=== PATIENT | male | born 1945 | race Caucasian/White ===

== ENCOUNTER → 2023-05-19 12:49 | Outpatient (REF) | payer MEDICARE, OTHER, SELFPAY | LOC: DHCBC MAIN 12:49 | PROVIDERS: ATTENDING PHYSICIAN Internal Medicine Cardiovascular Disease; FAMILY PHYSICIAN Internal Medicine | DX: I35.0 Nonrheumatic aortic (valve) stenosis (principal) | CPT/HCPCS: 93306 ==

== ENCOUNTER → 2023-09-02 08:38 | Outpatient (REF) | payer MEDICARE, OTHER, SELFPAY ==
[2023-09-02 12:56] LABS: % Eosinophils 2.2 % (0-6); % Immature Granulocytes 0.3 % (0-0.5); % Lymphocytes 22.4 % (20.5-51.1); % Monocytes 8.7 % (1.7-9.3); % Neutrophils 65.4 % (42.2-75.2); Absolute Basophils 0.1 10^3/uL (0-0.2); Absolute Eosinophils 0.2 10^3/uL (0-0.7); Absolute Lymphocytes 1.7 10^3/uL (1.2-3.4); Absolute Monocytes 0.7 10^3/uL (0.1-0.6); Absolute Neutrophils 5.1 10^3/uL (1.4-6.5); Hemoglobin 14.7 g/dL (13.0-18.0); Mean Corp Hgb Conc. 34.2 g/dL (33.0-37.0); Mean Corpuscular Hgb 33.4 pg (27.0-31.0); Mean Corpuscular Volume 97.7 fL (80.0-94.0); Nucleated Red Blood Cells % 0 % (-); Platelet Count 263 10^3/uL (130-400); Red Cell Dist. Width 13.6 % (11.5-14.5); White Blood Cell Count 7.7 10^3/uL (4.8-10.8)
[2023-09-02 13:37] LABS: ALT (SGPT) 31 U/L (0-50); AST (SGOT) 34 U/L (17-59); Albumin 4.3 g/dl (3.5-5.0); Alkaline Phosphatase 46 U/L (38-126); Blood Urea Nitrogen 21 mg/dl (9-20); Calcium 9.6 mg/dl (8.4-10.2); Carbon Dioxide 28 mmol/L (22-30); Chloride 103 mmol/L (98-107); Glucose 130 mg/dl (70-99); HDL Cholesterol 53 mg/dl; LDL Cholesterol, Calculated 55 mg/dl; Potassium 4.2 mmol/L (3.5-5.1); Sodium 139 mmol/L (135-145); Total Bilirubin 1.1 mg/dl (0.2-1.3); Total Cholesterol 132 mg/dl (50-199); Triglyceride 124 mg/dl (10-149); Very Low Density Lipoprotein 24 mg/dl (0-30); eGFR > 60.00
[2023-09-02 13:48] LABS: Free T3 3.32 pg/ml (2.77-5.27); Free T4 1.02 ng/dl (0.78-2.19)
[2023-09-02 13:57] LABS: Microalbumin, Random Urine 6.3 mg/dl (0.6-1.7)
[2023-09-02 14:03] LABS: TSH 5.25 uIU/ml (0.47-4.68)
[2023-09-02 14:24] LABS: Glycohemoglobin (HgbA1c) 6.1 % (4.0-5.6)
== END ==
LOC: HWLAB 08:38
PROVIDERS: ATTENDING PHYSICIAN Internal Medicine
DX: E11.9 Type 2 diabetes mellitus without complications (principal); E78.5 Hyperlipidemia, unspecified; E03.9 Hypothyroidism, unspecified; K92.2 Gastrointestinal hemorrhage, unspecified
CPT/HCPCS: 36415; 80053; 80061; 82043; 82570; 83036; 84439; 84443; 84481; 85025

== ENCOUNTER 2023-11-28 19:10 | Observation (INO) | payer MEDICARE, OTHER, SELFPAY ==
[2023-11-28] VITALS (14 sets, daily range): BP systolic 100–160; BP diastolic 47–89; BMI 30.6
--- NOTE | 2023-11-28 11:53 | ED.PDOC.TRB ---
ED Provider Triage
-
A medical screening examination has been initiated by a qualified medical provider. Based on the assessment performed at this time, it has been determined that an emergent medical condition may exist and the patient has been informed that further
medical evaluation and possible additional diagnostic testing may be needed.
HPI: This is a medical evaluation conducted in person to initiate diagnostic evaluation and provide initial therapeutics. Please see further documentation by the treating clinician.
GENERAL: Alert , in no apparent distress
EYE: No visual abnormalities.
NECK: Trachea midline
ENT: No visible abnormalities.
LUNGS: No acute respiratory distress
NEUROLOGICAL: Alert and oriented
SKIN: Skin intact. No visible changes.
MUSCULOSKELETAL: Moving extremities normally
PSYCH: Normal and appropriate interaction.
77 y/o M
chest pressure with exertion since last night walking up steps; has h/o CABG, CAD
has also had intermittent tightness today
no nausea, sob, pleuritic pain, lleg swelling
kanwal evauate with labs, ekg
[2023-11-28 12:16] LABS: % Basophils 0.9 % (0-2); % Eosinophils 1.7 % (0-6); % Immature Granulocytes 0.3 % (0-0.5); % Lymphocytes 26.2 % (20.5-51.1); % Monocytes 10.3 % (1.7-9.3); % Neutrophils 60.6 % (42.2-75.2); Absolute Basophils 0.1 10^3/uL (0-0.2); Absolute Eosinophils 0.1 10^3/uL (0-0.7); Absolute Monocytes 0.8 10^3/uL (0.1-0.6); Absolute Neutrophils 4.6 10^3/uL (1.4-6.5); Hematocrit 40.5 % (39.0-52.0); Hemoglobin 14.9 g/dL (13.0-18.0); Mean Corp Hgb Conc. 36.8 g/dL (33.0-37.0); Mean Corpuscular Hgb 34.4 pg (27.0-31.0); Mean Corpuscular Volume 93.5 fL (80.0-94.0); Mean Platelet Volume 9.6 fL (7.4-10.4); Nucleated Red Blood Cells % 0 % (-); Platelet Count 231 10^3/uL (130-400); Red Blood Cell Count 4.33 10^6/uL (4.70-6.10); Red Cell Dist. Width 13.6 % (11.5-14.5); White Blood Cell Count 7.6 10^3/uL (4.8-10.8)
[2023-11-28 12:33] LABS: ALT (SGPT) 28 U/L (0-50); AST (SGOT) 31 U/L (17-59); Albumin 4.4 g/dl (3.5-5.0); Alkaline Phosphatase 50 U/L (38-126); Blood Urea Nitrogen 23 mg/dl (9-20); Calcium 9.5 mg/dl (8.4-10.2); Carbon Dioxide 28 mmol/L (22-30); Chloride 104 mmol/L (98-107); Glucose 119 mg/dl (70-99); Potassium 4.1 mmol/L (3.5-5.1); Sodium 142 mmol/L (135-145); Total Bilirubin 1.1 mg/dl (0.2-1.3); Total Protein 6.8 g/dl (6.3-8.2); eGFR > 60.00
[2023-11-28 12:40] LABS: NT-proBNP 475 pg/ml; Troponin I < 0.012 ng/ml
--- NOTE | 2023-11-28 13:39 | ED.GENMED ---
History of Present Illness
General
Chief Complaint: Chest Pain
Source: patient and spouse
Time Seen by Provider: 11/28/23 12:37
History of Present Illness
History of Present Illness:
77-year-old male who presents for evaluation of chest discomfort. The patient was out yesterday and sort of hiking. Patient states he was little out of breath walking up the hill. He then got home and was walking up the steps and he developed
chest discomfort. Patient states the chest discomfort resolved at the top of the steps. He was able to go to sleep but today the pain has been off and on. Described as tightness across his chest. No shortness of breath. No fevers. No leg
swelling. Does have a history of aortic stenosis as well as CABG
Past History
Past History
ED Past Medical History: CAD, GERD, HTN, Hypercholesterolemia and Valvular disease
ED Past Surgical History: Cardiac (CABG 1999, cath w/ stents)
Social History
Tobacco: Non-smoker
Alcohol: None
Drug: None
Personal:
Living: with family
Employment: Retired
Family History
Family History: Other (Noncontributory)
Phy Exam
Physical Exam
Physical Exam:
CONSTITUTIONAL Patient alert and oriented to person, place and time. Well-appearing. Vital signs reviewed.
HEAD atraumatic, normocephalic.
EYES eyelids normal to inspection, Pupils equally round and reactive to light, Extraocular muscles intact, Conjunctiva normal, Sclera normal.
NECK normal range of motion, Trachea midline, no jugular venous distention.
RESPIRATORY CHEST No respiratory distress noted, Chest expansion equal, Bilateral breath sounds clear.
CARDIOVASCULAR regular rate and rhythm, 4 out of 6 systolic ejection murmur
BACK normal inspection, no obvious deformities
UPPER EXTREMITY range of motion normal, Motor strength normal, no cyanosis, no edema.
LOWER EXTREMITY range of motion normal, Motor strength normal, no cyanosis, no edema.
NEURO Speech normal, No focal motor deficits, [place] coma scale 15, Memory normal, Cranial Nerves intact to screening exam.
SKIN skin warm, dry, and normal in color.
PSYCHIATRIC patient oriented to person place and time, Normal affect.
Scores
Heart Score for Chest Pain Patients
STEMI patient?: No
History: Moderately Suspicious
ECG: Nonspecific Repolarization
Age: >/= 65 years
Risk Factors: >/= 3 Risk Factors or History of CAD
Troponin: </= Normal Limit
Heart Score for Chest Pain Patients: 6
Heart Score Risk: 20.3% MACE over next 6 weeks
Course
Orders/Labs/Results
Orders:
Orders
11/28/23 11:40
EKG [Electrocardiogram (*1)] Urgent
Reason for Study: Chest Pain
EKG- Treatment ONCE
11/28/23 12:01
Complete Blood Count/With Diff Urgent
Comprehensive Metabolic Panel Urgent
NT-proBNP Urgent
Troponin I Urgent
11/28/23 13:21
CR Chest - 2 Views Urgent
Comment:
Reason For Exam: cp
11/28/23 18:00
EKG [Electrocardiogram (*1)] Routine
Reason for Study: Chest Pain
Troponin I Q6H
11/29/23 00:00
Troponin I Q6H
11/29/23 06:00
EKG [Electrocardiogram (*1)] IN AM
Reason for Study: Chest Pain
NPO
Allow oral meds: Yes
Allow clear liquids: No
NM Cardiac Stress IN AM
Comment:
Reason For Exam: chest pain, CAD
11/29/23 08:00
Nuclear lexiscan Stress Test Routine
Reason for Study: chest pain, CAD
Abnormal Lab Results
11/28/23
12:01
RBC 4.33 L 10^6/uL
(4.70-6.10)
MCH 34.4 H pg
(27.0-31.0)
Absolute Monos (auto) 0.8 H 10^3/uL
(0.1-0.6)
Monocytes % 10.3 H %
(1.7-9.3)
BUN 23 H mg/dl
(9-20)
Glucose 119 H mg/dl
(70-99)
11/28/23 12:01
11/28/23 12:01
Vital Signs
Initial and Last Documented VS:
Initial Vital Signs
Temp Pulse Resp BP Pulse Ox
99.6 F 60 16 149/78 98
11/28/23 11:54 11/28/23 11:54 11/28/23 11:54 11/28/23 11:54 11/28/23 11:54
Last Documented Vital Signs
Temp Pulse Resp BP Pulse Ox
99.6 F 49 11 111/60 97
11/28/23 11:54 11/28/23 15:00 11/28/23 15:00 11/28/23 15:00 11/28/23 15:00
MDM/Problems Addressed
MDM/Problems Addressed:
Chest pain, aortic stenosis
*Radiology
Radiology exam reviewed: radiology read reviewed
*Pulse Oximetry
Patient hypoxic: no
*EKG
Interpreted by ED Provider?: Yes
Interpretation: abnormal
Rate: bradycardiac
Rhythm: sinus
[place]: normal axis
Ischemia: non-specific ST changes
*Freezer Machine Operator Interpretation
Rate: normal
Interpretation: normal
Rhythm: sinus
*Critical Care Note
Total Time (30-74mins, 75-104mins- exclusive of procedures): Not Applicable
Data Reviewed
Review of Other/Old Records Reveals: Testing (Cardiac catheterization reviewed from Dr. Clark) and Other (Echocardiogram reviewed from May 2023)
Source: patient and spouse
Prescriptions/Medications Considered But Not Given:
Consider heparin. Seen by cardiology hold off for now
Patient Management
Discussion with other providers: Hospitalist and Pan Puller (Dr. Chen)
Escalation/DeEscalation of care consider admission/obs:
Patient seen by cardiology who recommends admit/ops. Patient continues to have off-and-on pain and does have high pretest risk. Troponin negative thus far.
ED Attending Note
-
Portions of this chart may have been created with voice recognition software.� Occasional wrong word or��sound alike� substitutions may have occurred due to the inherent limitations of voice recognition software.
Discharge Plan
Departure
Patient Disposition: Admit
Date of Disposition: 11/28/23
Time of Disposition: 15:34
Admit to: Telemetry
Presentation/result/management discussed w/ accepting MD/DO: Hospitalist
Discharge Problem:
Chest pain
Prescriptions:
No Action
multivitamin 1 EACH tablet
1 ea PO WEEKLY
atorvastatin 10 MG tablet
20 mg PO HS
atenolol 25 MG tablet
25 mg PO HS
allopurinol 100 MG tablet
200 mg PO HS
isosorbide dinitrate 30 MG tablet
30 mg PO DAILY
nitroglycerin 0.4 MG tablet, sublingual
0.4 mg sublingual [id number] PRN (Reason: Chest pain)
omeprazole 20 MG capsule,delayed release(DR/EC)
20 mg PO .[id number] PRN (Reason: Indigestion/Heartburn)
aspirin 81 MG tablet,chewable
81 mg PO DAILY
valsartan-hydrochlorothiazide 1 EACH tablet
1 ea PO DAILY
mesalamine [Lialda] 1.2 GM tablet,delayed release (DR/EC)
1.2 g PO BID
amlodipine 5 MG tablet
5 mg PO DAILY
ibuprofen 200 MG tablet
200 mg PO PRN PRN (Reason: pain)
colchicine 0.6 MG tablet
0.6 mg PO DAILYPRN PRN (Reason: gout)
isosorbide dinitrate 40 mg tablet
40 mg PO BID Qty: 30 0RF
Referrals:
Lesa Schmidt MD [Family Provider] -
Interventions
Interventions:
*Risk Screen - Suicide Last Done: 11/28/23 12:41
*General Assessment Last Done: 11/28/23 12:41
*Neglect/Abuse Screening Last Done: 11/28/23 12:41
ED- Fall Risk Assessment Last Done: 11/28/23 12:42
*ED COVID-19 Vaccine History Last Done: 11/28/23 12:41
ED- Cardiac Assessment Last Done: 11/28/23 12:51
Discharge Date and Time
Print Language: TURKISH
--- NOTE | 2023-11-28 14:41 | CON.CAR ---
Addendum entered and electronically signed by Siva Chen MD 11/28/23 16:10:
I saw and examined the patient.
The CONCRETE ENGINEER's note was reviewed and I agree with the note.
77 y/o male with CAD s/p CABG 1997, left circumflex stenting 2005, hypertension, dyslipidemia, mild to moderate , diabetes/diet-controlled has had intermittent chest discomfort since yesterday. Patient states that he went on a hike and had no
symptoms but then when he was home went up a flight of stairs and had a left-sided chest discomfort that was a pressure sensation which resolved after about 15 minutes. Then this morning had some additional episodes of the chest discomfort again
lasting about 15 minutes and then resolving. Not all the episodes were associated with exertion. No other associated symptoms. At times he wonders if symptoms are brought on by certain positions like when he tries to bring his shoulders together
or tries to palpate his chest but does not easily reproducible chest discomfort with palpation. Patient is in no distress. ECG without ischemic changes.
Exact etiology of chest symptoms are unclear. Would consider both cardiac and noncardiac causes. However considering the extent of his coronary disease with last catheterization be 2014 patient has higher likelihood of developing due to
obstructive disease. Considering his history and some of the recurrent chest discomfort would suggest further observation
-Observation
-Serial troponins
-Tylenol to treat any component of musculoskeletal discomfort.
-Low-dose nitrates
-If significant rise in troponins then would consider IV heparin and plan for catheterization this admission.
-If patient remains chest pain-free and no other cause of his chest discomfort becomes evident then would plan for Lexiscan nuclear perfusion stress test. Patient does not feel that he would be able to walk on a treadmill
Original Note:
Consultation
Consultation Request
Date/Time Consultation Requested: 11/28/23 1342
Date/Time Consultation Performed: 11/28/23 1420
Requesting Provider: Dr. Lewis
Performing Provider: Jessica ECHOLS for Dr. hCen
Reason for Consultation: Chest discomfort
Medical History
-
Chief Complaint: chest discomfort
History of Present Illness:
77 y/o male with CAD s/p CABG 1997, stenting 2005 (circ), hypertension, dyslipidemia, GERD, mild to moderate , diet-controlled DM per chart. He went hiking yesterday and felt fine. However, last night around 11, he was walking upstairs with a bag
(about 5 lbs) and developed left-sided chest pressure. It went away after about 15 minutes. This AM, he woke up feeling fine, but when he started walking around, he developed mild chest pressure across the chest, which has been intermittent. Some of
this, he can make worse with moving his arms. However, currently at rest he does continue to have a mild discomfort. He is in no distress at the time of my assessment.
Past Medical History
Past Medical History: CAD, GERD, HTN, Hypercholesterolemia, NIDDM and Valvular Disease (aortic stenosis)
Social History
Tobacco: Non-Smoker
Personal:
Living: With Family
Family History
Family History: Reviewed & Not Pertinent
Allergies / Home Medications
Allergy/AdvReac Type Severity Reaction Status Date / Time
methylprednisolone Allergy Unknown Verified 11/28/23 11:53
[From Medrol]
�Medication �Instructions �Recorded �Confirmed �Type
allopurinol 100 mg tablet 200 mg PO HS 12/10/16 09/04/19 History
aspirin 81 mg chewable tablet 81 mg PO DAILY 12/10/16 09/04/19 History
atenolol 25 mg tablet 25 mg PO HS 12/10/16 09/04/19 History
atorvastatin 10 mg tablet 20 mg PO HS 12/10/16 09/04/19 History
isosorbide dinitrate 30 mg tablet 30 mg PO DAILY 12/10/16 09/04/19 History
mesalamine 1.2 gram tablet,delayed 1.2 g PO BID 12/10/16 09/04/19 History
release (Lialda)
multivitamin 1 ea PO WEEKLY 12/10/16 09/04/19 History
nitroglycerin 0.4 mg sublingual 0.4 mg sublingual [id number] PRN 12/10/16 09/04/19 History
tablet Chest pain
omeprazole 20 mg capsule,delayed 20 mg PO .[id number] PRN 12/10/16 09/04/19 History
release Indigestion/Heartburn
valsartan 320 1 ea PO DAILY 12/10/16 09/04/19 History
mg-hydrochlorothiazide 12.5 mg
tablet
amlodipine 5 mg tablet 5 mg PO DAILY 06/01/17 09/04/19 History
ibuprofen 200 mg tablet 200 mg PO PRN PRN pain 06/01/17 09/04/19 History
colchicine 0.6 mg tablet 0.6 mg PO DAILYPRN PRN gout 09/04/19 09/04/19 History
isosorbide dinitrate 40 mg tablet 40 mg PO BID #30 tabs 06/12/22 Rx
Review of Systems
-
History Source: Patient
All other systems: Negative unless noted
Cardiac: Chest Pain
Physical Exam
Vital Signs
Temp Pulse Resp BP Pulse Ox
99.6 F 53 15 136/67 95
11/28/23 11:54 11/28/23 13:51 11/28/23 13:51 11/28/23 13:00 11/28/23 13:51
Lab Results
11/28/23 12:01
11/28/23 12:01
Troponin I < 0.012 ng/ml 11/28/23 12:01
Ngv-[id number]-Vbhlyxntsrm Pept 475 pg/ml 11/28/23 12:01
Physical Exam
General: Well Developed, Well Nourished and No Apparent Distress
HEENT: Normocephalic and Anicteric
Respiratory: Clear and Non Labored Respirations
Cardiac: Regular Rhythm
Skin: Warm and Dry
Neuro: AO x 3
Psych: Calm
Impression / Plan
-
Chest pain:
-etiology unclear
-follow trops, EKG's
-Lexiscan stress test in AM (unless troponins increase, then cath)
-Tylenol, nitro
-follow telemetry
CAD with hx CABG and stenting:
-most recent testing as below
-Continue ASA, statin, and BB
Aortic stenosis:
-mild-moderate on echo 05/2023
HTN:
-continue meds and monitor
Data Reviewed
-
EKG: Tracing Personally Visualized and interpreted (SB with PAC's, Nonspecific t abnormality- no acute change from previous to my review)
Radiology: Report Reviewed by me (CXR: Clear lungs. 2. No significant change compared to prior study.)
Medical Tests (Nuc Med, Echo etc): Report Reviewed by me (echo 05/19/23: LV ejection fraction is 70-75%. No regional wall motion abnormalities are seen. Normal right ventricular size and function. Mild to moderate aortic stenosis; peak/mean
gradients 31/17 mmHg, calculated DOMINIC is 1.3 cm2.) and Other (nuclear stress test, lexiscan 2022: no ischemia, EF 69%. Cardiac cath 2014: Severe [place] CAD with patent LATHAM to LAD and SVG-OM 3. The anatomy is not significantly changed compared with
the prior study from 2010)
Labs: Labs Reviewed by me
--- NOTE | 2023-11-28 15:05 | EDRN ---
Dr. Chen in to see pt at thistime.
--- NOTE | 2023-11-28 15:45 | EDRN ---
Dr. Coto in to see pt at this time.
--- NOTE | 2023-11-28 16:49 | EDRN ---
Pt was ordered a now dose of tylenol. This RN asked pt about pain and pt stated he has no pain, this RN asked about the med and pt stated he takes it sometimes at night but also declined the now dose that was ordered at this time.
--- NOTE | 2023-11-28 18:13 | EDRN ---
Repeat troponin drawn and sent at 18:00. This RN TT'd Dr. Benavides after finding out he was hospitalist in charge of pt at 17:40. This RN was just TT'd back at 18:11 that pt was seen and orders will be in soon. This RN fed pt a boxed lunch at this
time.
--- NOTE | 2023-11-28 18:42 | HPS.HSE ---
Family Physician
-
Family Physician: Lesa Schmidt
Chief Complaint
-
Chest Pain
History of Present Illness
77 y/o male with past medical history of CAD s/p CABG 1997, left circumflex stenting 2005, hypertension, dyslipidemia, GERD, mild to moderate , diabetes mellitus, presented with chest pain since yesterday. The pain was described as a pressure
sensation on the left side of his chest after he returned home from hiking, pain improved but then returned earlier today. He has been having on and off chest discomfort. He denied any shortness of breath.
Medical History
Past Medical History
Past Medical History: Reports Other (As per HPI above)
Past Surgical History: Reports Cardiac (CABG 1999, cath w/ stents)
Social History
Tobacco: Non-smoker
Alcohol: None
Drug: None
Family History
Family History: CAD
Allergies / Home Medications
Allergies reflects when Allergies were last updated in [facility].
Home Medications with original date entered in [facility]
Allergy/Medication List:
Allergies
Allergy/AdvReac Type Severity Reaction Status Date / Time
methylprednisolone Allergy pt states Verified 11/28/23 16:01
[From Medrol] he does
not have
any
allergies
Home Medications
allopurinol 100 mg tablet 200 mg PO HS Gout 12/10/16
aspirin 81 mg chewable tablet 81 mg PO DAILY Blood Clot Prevention/Tx 12/10/16
atenolol 25 mg tablet 25 mg PO HS Blood Pressure 12/10/16
mesalamine 1.2 gram tablet,delayed release (Lialda) 1.2 g PO Q48H Gastrointestinal Issue 12/10/16
nitroglycerin 0.4 mg sublingual tablet 0.4 mg sublingual [id number] PRN Chest pain 12/10/16
omeprazole 20 mg capsule,delayed release 20 mg PO DAILYPRN PRN Indigestion/Heartburn 12/10/16
amlodipine 5 mg tablet 5 mg PO DAILY Blood Pressure 06/01/17
acetaminophen 325 mg tablet (Tylenol) 650 mg PO HSPRN PRN mild pain 11/28/23
atorvastatin 20 mg tablet 20 mg PO DAILY High Cholesterol 11/28/23
isosorbide mononitrate 60 mg tablet,extended release 24 hr 60 mg PO DAILY Heart Disease/Condition 11/28/23
levothyroxine 50 mcg tablet 50 mcg PO DAILY Thyroid 11/28/23
polyvinyl alcohol 1.4 % eye drops 1 drp BOTH EYES DAILY Eye Condition 11/28/23
therapeutic multivitamin 1 tab PO WEEKLY Supplement 11/28/23
valsartan 320 mg-hydrochlorothiazide 12.5 mg tablet 1 tab PO DAILY Blood Pressure 11/28/23
Review of Systems
-
A 12 point ROS was completed and negative except as noted: Yes
Physical Exam
Vital Signs
Vital Signs
Temp Pulse Resp BP Pulse Ox
99.6 F 69 21 134/62 98
11/28/23 11:54 11/28/23 17:45 11/28/23 17:45 11/28/23 17:00 11/28/23 17:45
Physical Exam
General: No Apparent Distress and Conversant
HEENT: NormoCephalic and Moist mucous membranes
Respiratory: Clear
Cardiac: S1/S2 and Regular Rhythm
GI: Soft, Non Tender and Normal Bowel Sounds
Musculoskeletal: No Cyanosis and No Edema
Skin: Warm and Dry
Neuro: Awake, Alert, AO x 3 and Nonfocal/grossly intact
Psych: Calm and Intact Judgment/Insight
Laboratory Results
-
11/28/23 12:01
11/28/23 12:01
Laboratory Results
Total Bilirubin 1.1 mg/dl (0.2-1.3) 11/28/23 12:01
AST 31 U/L (17-59) 11/28/23 12:01
ALT 28 U/L (0-50) 11/28/23 12:01
Alkaline Phosphatase 50 U/L (38-126) 11/28/23 12:01
Troponin I < 0.012 ng/ml 11/28/23 12:01
Impression/Plan
-
Assessment/Plan
Presentation with On and Off Chest Pain
History of CAD s/p CABG 1997
History of left circumflex stenting 2005
-Trend troponins
-Stress test in the morning
-Patient may need cardiac cath
Hypertension
-Continue home Atenolol and Amlodipine
Dyslipidemia
-Continue home Atorvastatin
GERD
-Continue Omeprazole
Mild to moderate aortic stenosis
Diabetes mellitus
-Sliding Scale and accuchecks
DVT PPx: SCDs and Lovenox
Code Status: Full Code
[2023-11-28 18:55] LABS: Troponin I 0.026 ng/ml
[2023-11-28] MEDS: NITRO-BID 0.5 INCH TOPICAL ×2 (19:12→23:10)
--- NOTE | 2023-11-28 21:00 | PTCARENOTE ---
no delay received, aaox3. pt ambulated to rm 412-2. nsr. vss. c/o mild chest discomfort. nitro past to left chest wall. call marcano in reach. will monitor.
[2023-11-28] MEDS: TENORMIN 25 MG PO (21:22)
[2023-11-28] MEDS: ZYLOPRIM 200 MG PO (21:22)
[2023-11-29 01:57] LABS: Troponin I < 0.012 ng/ml
[2023-11-29 03:30] VITALS: BP 120/70
--- NOTE | 2023-11-29 04:59 | PTCARENOTE ---
nitro patch removed per order
[2023-11-29] MEDS: SYNTHROID 50 MCG PO (05:05)
[2023-11-29 06:00] VITALS: BMI 30.7
[2023-11-29 11:46] VITALS: BP 150/76
--- NOTE | 2023-11-29 11:48 | W.PN.HOSP.TC ---
Today's Communication/Plan
-
Stress Test today
Awaiting cardiology decision regarding cardiac cath
Assessment / Plan
Assessment / Plan
Physical Exam
General: No Apparent Distress and Conversant
HEENT: Normocephalic and Moist mucous membranes
Respiratory: Clear
Cardiac: S1/S2 and Regular Rhythm
GI: Soft, Non Tender and Normal Bowel Sounds
Musculoskeletal: No Cyanosis and No Edema
Skin: Warm and Dry
Neuro: Awake, Alert, AO x 3 and Nonfocal/grossly intact
Psych: Calm and Intact Judgment/Insight
Assessment/Plan
Presentation with On and Off Chest Pain
History of CAD s/p CABG 1997
History of left circumflex stenting 2005
-Troponins negative
-Stress test completed today, awaiting results
-Patient may need cardiac cath
Hypertension
-Continue home Atenolol and Amlodipine
Dyslipidemia
-Continue home Atorvastatin
GERD
-Continue Omeprazole
Mild to moderate aortic stenosis
Diabetes mellitus
-Sliding Scale and accuchecks
DVT PPx: SCDs and Lovenox
Code Status: Full Code
Anticipated Discharge: 24 - 48 hours
Subjective/Interval History
-
Date of Service: November 29, 2023
Patient was not present in his room at the time of attempted patient encounter. Per nurse, patient was away from his room for stress test.
Objective Data
-
Labs:
Laboratory Results
11/29/23
06:00
WBC Pending
Hgb Pending
Hct Pending
Plt Count Pending
Sodium Pending
Potassium Pending
Chloride Pending
Carbon Dioxide Pending
BUN Pending
Creatinine Pending
Glucose Pending
Calcium Pending
Vital Signs:
Vital Signs
Temp Pulse Resp BP Pulse Ox
98.3 F 59 18 150/76 98
11/29/23 11:46 11/29/23 11:46 11/29/23 11:46 11/29/23 11:46 11/29/23 11:46
[2023-11-29 12:27] LABS: Glucose - Point of Care 136 mg/dl (70-99)
[2023-11-29 12:29] LABS: % Basophils 0.6 % (0-2); % Eosinophils 1.4 % (0-6); % Immature Granulocytes 0.4 % (0-0.5); % Lymphocytes 17.3 % (20.5-51.1); % Monocytes 10.3 % (1.7-9.3); Absolute Basophils 0.1 10^3/uL (0-0.2); Absolute Eosinophils 0.1 10^3/uL (0-0.7); Absolute Lymphocytes 1.4 10^3/uL (1.2-3.4); Absolute Monocytes 0.8 10^3/uL (0.1-0.6); Absolute Neutrophils 5.6 10^3/uL (1.4-6.5); Hematocrit 41.5 % (39.0-52.0); Hemoglobin 15.2 g/dL (13.0-18.0); Mean Corp Hgb Conc. 36.6 g/dL (33.0-37.0); Mean Corpuscular Hgb 33.5 pg (27.0-31.0); Mean Corpuscular Volume 91.4 fL (80.0-94.0); Mean Platelet Volume 9.5 fL (7.4-10.4); Nucleated Red Blood Cells % 0 % (-); Platelet Count 232 10^3/uL (130-400); Red Blood Cell Count 4.54 10^6/uL (4.70-6.10); Red Cell Dist. Width 13.6 % (11.5-14.5)
[2023-11-29 12:58] LABS: Blood Urea Nitrogen 18 mg/dl (9-20); Calcium 9.3 mg/dl (8.4-10.2); Carbon Dioxide 28 mmol/L (22-30); Chloride 101 mmol/L (98-107); Estimated Creatinine Clearance 71 ml/min; Glucose 153 mg/dl (70-99); Magnesium 1.9 mg/dl (1.6-2.3); Sodium 140 mmol/L (135-145); eGFR > 60.00
--- NOTE | 2023-11-29 13:07 | CM ---
Addendum entered by Ami Elmore 11/29/23 16:15:
Update from Hospitalist, patient clear for discharge.
Addendum entered by Ami Elmore 11/29/23 16:10:
Patient and seen bedside, CM discussed per Assistant Shift Supervisor, patient remains observation appropriate. Patient provided with risk management contact information. Patient reports he has not had anything to eat or drink and would like to know if
he can discharge home. Per Hospitalist, awaiting to hear from Cardiology.
Original Note:
Patient seen bedside, initial assessment completed. Patient resides with his in a multiple story home, two steps to enter. Patient denies the use of DME, VN, or SNF history. Patient confirms PCP Lesa Schmidt, pharmacy [facility]
[address], confirms prescription coverage. Patient denies food, housing/utility, transportation insecurities at home. Patient reviewed ELISE form, patient upset, states he was told in ER that he would be admitted inpatient status, otherwise he would have
left hospital. TT to Hospitalist with update. TT also sent to UR Supervisor Hand Silvering. CM will continue to follow for all discharge planning needs.
Plan; home no needs likely.
[2023-11-29 13:59] LABS: Glycohemoglobin (HgbA1c) 6.2 % (4.0-5.6)
--- NOTE | 2023-11-29 14:38 | W.PN.UPDATE ---
Update Note
Progress Note Update
lexiscan - no clear evidence of ischemia. small fixed inferapical defect likely due to soft tissue
[2023-11-29 15:15] VITALS: BP 149/75
--- NOTE | 2023-11-29 15:31 | W.PN.CD ---
Addendum entered and electronically signed by Siva Chen MD 11/29/23 15:52:
Will also continue daily treatment of GERD with PPI
Addendum entered and electronically signed by Siva Chen MD 11/29/23 15:51:
I saw and examined the patient.
The DIRECTOR HUMAN SERVICES's note was reviewed and I agree with the note.
Patient remains chest pain-free. Lexiscan nuclear fusion stress test without ischemia. No change in exam. Reviewed stress test findings with the patient. We also discussed limitations of chest discomfort. I explained to him and that if he has
issues with increased symptoms that he should seek medical attention.
-Overall patient appears stable for discharge from a cardiology standpoint. Patient wants to go home and is requesting to be discharged to soon as possible.
-Continue medical therapy for coronary artery disease including aspirin
-Adjustment and isosorbide to 90 mg daily
Original Note:
Today's Communication / Plan
-
continue cardiac medications and OK for d/c.
Impression / Plan
-
Chest pain:
-resolved.
-Lexiscan stress test this am did not show ischemia.
-troponin benign.
CAD with h/o CABG and stenting:
-stable, resolved chest pain as above.
-Lexiscan stress did not show ischemia.
-Continue ASA, statin, and BB.
Aortic stenosis:
-mild-moderate on echo 05/2023.
HTN:
-stable on, meds, continue.
Physical Exam
Vital Signs/Labs
Vital Signs
Temp Pulse Resp BP Pulse Ox
98.3 F 59 18 150/76 98
11/29/23 11:46 11/29/23 11:46 11/29/23 11:46 11/29/23 11:46 11/29/23 11:46
11/28/23 11/29/23 11/30/23
06:59 06:59 06:59
Actual Weight 96.9 kg
11/29/23 12:01
11/29/23 12:01
Magnesium 1.9 mg/dl (1.6-2.3) 11/29/23 12:01
11/28/23
12:01
Hsn-H-Bjrbjseoudr Pept 475
LAB Results
11/28/23 11/28/23 11/29/23
12: 17:59 01:20
Troponin I < 0.012 0.026 D < 0.012 D
Physical Exam
Constitutional: No acute distress
EENT: Anicteric
Cardiovascular: Rhythm & rate is regular
Respiratory: Respiratory effort normal
GI: Soft, Non tender and Normal bowel sounds
Neuro/Psych: AO x 3
Other: Skin (warm, dry)
Data Reviewed
-
Date of Service: November 29, 2023
Medical Decision Making: Reviewed Test Results
EKG: Tracing Personally Visualized and interpreted
Echo: Report Reviewed by me
X-Ray/CT/US/MRI/NUC/PET: Report Reviewed by me
Labs: Labs Reviewed by me
Old Records: Reviewed
--- NOTE | 2023-11-29 16:11 | W.DCSUMMARY ---
Discharge Summary
Discharge Data
Date of Admission: 11/28/23
Date of Discharge: 11/29/23
Total time spent discharging patient (in min): 39
-
Pending Results: No
Hospital Course
77 y/o male with past medical history of CAD s/p CABG 1997, left circumflex stenting 2005, hypertension, dyslipidemia, GERD, mild to moderate , diabetes mellitus, presented with chest pain for a 1-day duration. The pain was described as a pressure
sensation on the left side of his chest after he returned home from hiking, pain improved but then returned earlier on the day of presentation to the ER. He has been having on and off chest discomfort. He denied any shortness of breath.
Electrocardiogram did not suggest ischemia. Troponins were negative and patient had a stress test. Per cardiology, Lexiscan stress test showed no clear evidence of ischemia but did show a small fixed inferapical defect likely due to soft tissue.
Cardiology recommended increasing patient's isosorbide to 90 mg daily and do scheduled daily treatment of patient's GERD with a PPI medication.
Discharge Plan
-
Patient Disposition: Home (Routine Discharge)
Discharge Diagnosis/Procedures: Presentation with On and Off Chest Pain
History of CAD s/p CABG 1997
History of left circumflex stenting 2005
Hypertension
Dyslipidemia
GERD
Mild to moderate aortic stenosis
Diabetes mellitus
Diet: Low Fat, Low Cholesterol, Low Sodium and Diabetic, Carb Controlled
Activity: As tolerated
Referrals:
Lesa Schmidt MD [Family Provider] - in less than 1 week
Jalen Jimenez MD [Active] - in one to two weeks (Hospital Follow-up)
Additional Discharge Medication Instructions: Isosorbide Mononitrate increased to 90 mg PO daily.
Omeprazole changed from as needed daily to scheduled daily.
Prescriptions:
New
isosorbide mononitrate 30 mg Tablet Extended Release 24 Hr
90 mg PO DAILY Qty: 90 1RF
Continued
atenolol 25 MG tablet
25 mg PO HS
allopurinol 100 MG tablet
200 mg PO HS
nitroglycerin 0.4 MG tablet, sublingual
0.4 mg sublingual [id number] PRN (Reason: Chest pain)
aspirin 81 MG tablet,chewable
81 mg PO DAILY
mesalamine [Lialda] 1.2 GM tablet,delayed release (DR/EC)
1.2 g PO Q48H
amlodipine 5 MG tablet
5 mg PO DAILY
acetaminophen [Tylenol] 325 mg Tablet
650 mg PO HSPRN PRN (Reason: mild pain)
atorvastatin 20 mg Tablet
20 mg PO DAILY
polyvinyl alcohol 1.4 % Drops
1 drp BOTH EYES DAILY
therapeutic multivitamin Tablet
1 tab PO WEEKLY
levothyroxine 50 mcg Tablet
50 mcg PO DAILY
valsartan-hydrochlorothiazide 320-12.5 mg Tablet
1 tab PO DAILY
Changed
omeprazole 20 MG capsule,delayed release(DR/EC)
20 mg PO DAILY Qty: 0 0RF
Discontinued
isosorbide mononitrate 60 mg Tablet Extended Release 24 Hr
60 mg PO DAILY
Discharge Orders:
Discharge Patient (As Directed); Ordered 11/29/23
Ordered By: Donovan Benavides
Discharge Date and Time
Discharge Date/Time: 11/29/23 16:59
Print Language: INDONESIAN
== END 2023-11-29 16:59 | disposition home or self-care (01) ==
LOC: 4 EAST ACU 19:10
PROVIDERS: Nurse Practitioner; Physician Assistant; ADMITTING PHYSICIAN Hospitalist; EMERGENCY PHYSICIAN Emergency Medicine; FAMILY PHYSICIAN Internal Medicine
DX: R07.89 Other chest pain (principal); I25.10 Atherosclerotic heart disease of native coronary artery without angina pectoris; I35.0 Nonrheumatic aortic (valve) stenosis; E78.00 Pure hypercholesterolemia, unspecified; I10 Essential (primary) hypertension; K21.9 Gastro-esophageal reflux disease without esophagitis; E11.9 Type 2 diabetes mellitus without complications; I49.1 Atrial premature depolarization; R00.1 Bradycardia, unspecified; I95.9 Hypotension, unspecified; Z95.5 Presence of coronary angioplasty implant and graft; Z95.1 Presence of aortocoronary bypass graft; Z88.8 Allergy status to other drugs, medicaments and biological substances; Z79.82 Long term (current) use of aspirin; Z82.49 Family history of ischemic heart disease and other diseases of the circulatory system; Z79.890 Hormone replacement therapy
CPT/HCPCS: 71046; 78452; 80048; 80053; 82962; 83036; 83735; 83880; 84484; 85025; 93005; 93017; 99285; A9500; G0378

== ENCOUNTER → 2024-01-24 11:44 | Outpatient (REF) | payer MEDICARE, OTHER, SELFPAY ==
[2024-01-24 17:51] LABS: ALT (SGPT) 30 U/L (0-50); AST (SGOT) 30 U/L (17-59); Albumin 4.5 g/dl (3.5-5.0); Alkaline Phosphatase 45 U/L (38-126); Blood Urea Nitrogen 22 mg/dl (9-20); Calcium 9.3 mg/dl (8.4-10.2); Carbon Dioxide 28 mmol/L (22-30); Chloride 101 mmol/L (98-107); Glucose 122 mg/dl (70-99); HDL Cholesterol 48 mg/dl; LDL Cholesterol, Calculated 61 mg/dl; Potassium 4.2 mmol/L (3.5-5.1); Sodium 144 mmol/L (135-145); Total Bilirubin 1.2 mg/dl (0.2-1.3); Total Cholesterol 133 mg/dl (50-199); Total Protein 7.1 g/dl (6.3-8.2); Triglyceride 124 mg/dl (10-149); Very Low Density Lipoprotein 24 mg/dl (0-30); eGFR > 60.00
== END ==
LOC: HWLAB 11:44
PROVIDERS: ATTENDING PHYSICIAN Internal Medicine
DX: E11.9 Type 2 diabetes mellitus without complications (principal); E78.5 Hyperlipidemia, unspecified
CPT/HCPCS: 36415; 80053; 80061; 83036

== ENCOUNTER → 2024-05-22 11:07 | Outpatient (REF) | payer MEDICARE, OTHER, SELFPAY | LOC: HWRCS 11:07 | PROVIDERS: ATTENDING PHYSICIAN Student in an Organized Health Care Education/Training Program; FAMILY PHYSICIAN Internal Medicine | DX: I25.10 Atherosclerotic heart disease of native coronary artery without angina pectoris (principal) | CPT/HCPCS: 93306 ==

== ENCOUNTER → 2024-06-12 08:45 | Outpatient (REF) | payer MEDICARE, OTHER, SELFPAY ==
[2024-06-12 12:53] LABS: % Basophils 0.6 % (0-2); % Eosinophils 1.9 % (0-6); % Immature Granulocytes 0.3 % (0-0.5); % Lymphocytes 20.4 % (20.5-51.1); % Monocytes 8.7 % (1.7-9.3); % Neutrophils 68.1 % (42.2-75.2); Absolute Basophils 0.1 10^3/uL (0-0.2); Absolute Eosinophils 0.2 10^3/uL (0-0.7); Absolute Lymphocytes 1.6 10^3/uL (1.2-3.4); Absolute Monocytes 0.7 10^3/uL (0.1-0.6); Absolute Neutrophils 5.2 10^3/uL (1.4-6.5); Hematocrit 40.8 % (39.0-52.0); Hemoglobin 14.2 g/dL (13.0-18.0); Mean Corp Hgb Conc. 34.8 g/dL (33.0-37.0); Mean Corpuscular Hgb 33.6 pg (27.0-31.0); Mean Corpuscular Volume 96.5 fL (80.0-94.0); Mean Platelet Volume 10.4 fL (7.4-10.4); Nucleated Red Blood Cells % 0 % (-); Platelet Count 240 10^3/uL (130-400); Red Blood Cell Count 4.23 10^6/uL (4.70-6.10); Red Cell Dist. Width 13.9 % (11.5-14.5); White Blood Cell Count 7.7 10^3/uL (4.8-10.8)
[2024-06-12 13:07] LABS: Glycohemoglobin (HgbA1c) 6.1 % (4.0-5.6)
[2024-06-12 13:42] LABS: HDL Cholesterol 41 mg/dl; LDL Cholesterol, Calculated 62 mg/dl; Total Cholesterol 126 mg/dl (50-199); Triglyceride 119 mg/dl (10-149); Very Low Density Lipoprotein 23 mg/dl (0-30)
[2024-06-12 13:56] LABS: Free T3 3.04 pg/ml (2.77-5.27); Free T4 1.22 ng/dl (0.78-2.19)
[2024-06-12 13:57] LABS: Microalbumin, Random Urine 6.7 mg/dl (0.6-1.7); Microalbumin/creatinine Ratio 41.6 mg/g
[2024-06-12 14:09] LABS: TSH 3.63 uIU/ml (0.47-4.68)
== END ==
LOC: HWLAB 08:45
PROVIDERS: ATTENDING PHYSICIAN Internal Medicine; REFERRING PHYSICIAN Student in an Organized Health Care Education/Training Program
DX: E11.9 Type 2 diabetes mellitus without complications (principal); I10 Essential (primary) hypertension; E78.5 Hyperlipidemia, unspecified; Z87.19 Personal history of other diseases of the digestive system; E03.9 Hypothyroidism, unspecified
CPT/HCPCS: 36415; 80061; 82043; 82570; 83036; 84439; 84443; 84481; 85025

== ENCOUNTER → 2024-06-18 08:33 | Outpatient (REF) | payer MEDICARE, OTHER, SELFPAY ==
[2024-06-18 11:37] LABS: ALT (SGPT) 32 U/L (0-50); AST (SGOT) 27 U/L (17-59); Albumin 4.1 g/dl (3.5-5.0); Alkaline Phosphatase 48 U/L (38-126); Blood Urea Nitrogen 24 mg/dl (9-20); Calcium 9.2 mg/dl (8.4-10.2); Carbon Dioxide 28 mmol/L (22-30); Chloride 104 mmol/L (98-107); Glucose 143 mg/dl (70-99); Potassium 4.1 mmol/L (3.5-5.1); Sodium 140 mmol/L (135-145); Total Bilirubin 0.9 mg/dl (0.2-1.3); Total Protein 6.8 g/dl (6.3-8.2); eGFR > 60.00
== END ==
LOC: HWLAB 08:33
PROVIDERS: ATTENDING PHYSICIAN Internal Medicine
DX: E11.9 Type 2 diabetes mellitus without complications (principal); I10 Essential (primary) hypertension; E78.5 Hyperlipidemia, unspecified
CPT/HCPCS: 36415; 80053

== ENCOUNTER 2024-06-25 09:03 | Inpatient (IN) | payer MEDICARE, OTHER, SELFPAY ==
[2024-06-23 23:00] VITALS: BP 166/74
[2024-06-23 23:32] VITALS: BMI 31.4
[2024-06-23 23:34] VITALS: BP 162/81
[2024-06-23 23:48] LABS: % Basophils 0.7 % (0-2); % Eosinophils 2.1 % (0-6); % Immature Granulocytes 0.2 % (0-0.5); % Lymphocytes 24.4 % (20.5-51.1); % Monocytes 10.6 % (1.7-9.3); Absolute Basophils 0.1 10^3/uL (0-0.2); Absolute Eosinophils 0.2 10^3/uL (0-0.7); Absolute Lymphocytes 2.4 10^3/uL (1.2-3.4); Hematocrit 39.6 % (39.0-52.0); Hemoglobin 14.3 g/dL (13.0-18.0); Mean Corp Hgb Conc. 36.1 g/dL (33.0-37.0); Mean Corpuscular Hgb 34.1 pg (27.0-31.0); Mean Corpuscular Volume 94.5 fL (80.0-94.0); Mean Platelet Volume 9.5 fL (7.4-10.4); Nucleated Red Blood Cells % 0 % (-); Platelet Count 232 10^3/uL (130-400); Red Blood Cell Count 4.19 10^6/uL (4.70-6.10); Red Cell Dist. Width 13.7 % (11.5-14.5); White Blood Cell Count 9.7 10^3/uL (4.8-10.8)
[2024-06-24] VITALS (15 sets, daily range): BP systolic 123–175; BP diastolic 58–99; BMI 30.7
[2024-06-24 00:06] LABS: ALT (SGPT) 29 U/L (0-50); AST (SGOT) 32 U/L (17-59); Albumin 4.6 g/dl (3.5-5.0); Alkaline Phosphatase 47 U/L (38-126); Blood Urea Nitrogen 22 mg/dl (9-20); Calcium 9.2 mg/dl (8.4-10.2); Carbon Dioxide 23 mmol/L (22-30); Chloride 105 mmol/L (98-107); Estimated Creatinine Clearance 59 ml/min; Glucose 150 mg/dl (70-99); Sodium 140 mmol/L (135-145); Total Bilirubin 0.8 mg/dl (0.2-1.3); Total Protein 6.9 g/dl (6.3-8.2); eGFR > 60.00
[2024-06-24 00:17] LABS: Troponin I < 0.012 ng/ml
[2024-06-24 02:17] LABS: NT-proBNP 397 pg/ml
[2024-06-24 02:19] LABS: Troponin I < 0.012 ng/ml
--- NOTE | 2024-06-24 03:47 | ED.GENMED ---
History of Present Illness
General
Chief Complaint: Chest Pain
Source: patient
Exam Limitations: none
Time Seen by Provider: 06/23/24 23:26
History of Present Illness
History of Present Illness:
This is a 78-year-old male with a long history of coronary disease, hypertension who presents with off-and-on chest pain has been ongoing for about a week. Tonight at getting out of the shower he had substernal chest pain with pain in the bilateral
chest region that persisted he felt really weak. Patient states that since has resolved. He has over the week tried occasionally to take his nitroglycerin without any significant improvement. The patient states that he does follow with Dr. Watkins
from cardiology. Patient states he feels like he should have a cath because he is worried about a blockage.
Past History
Past History
ED Past Medical History: CAD, GERD, HTN, Hypercholesterolemia and Valvular disease
ED Past Surgical History: Cardiac (CABG 1999, cath w/ stents)
Social History
Tobacco: Non-smoker
Alcohol: None
Drug: None
Personal:
Living: with family
Employment: Retired
Family History
Family History: Other (Noncontributory)
Phy Exam
Physical Exam
Physical Exam:
CONSTITUTIONAL Patient alert and oriented to person, place and time. Well-appearing. Vital signs reviewed.
HEAD atraumatic, normocephalic.
EYES eyelids normal to inspection, Extraocular muscles intact, Conjunctiva normal, Sclera normal.
NECK normal range of motion, Trachea midline, no jugular venous distention.
RESPIRATORY CHEST No respiratory distress noted, Chest expansion equal, Bilateral breath sounds clear.
CARDIOVASCULAR irregularly irregular, 4 out of 6 systolic ejection murmur noted
BACK normal inspection, no obvious deformities
UPPER EXTREMITY range of motion normal, Motor strength normal, no cyanosis, no edema.
LOWER EXTREMITY range of motion normal, Motor strength normal, no cyanosis, no edema.
NEURO Speech normal, No focal motor deficits, [place] coma scale 15, Memory normal, Cranial Nerves intact to screening exam.
SKIN skin warm, dry, and normal in color.
Scores
Heart Score for Chest Pain Patients
STEMI patient?: No
History: Moderately Suspicious
ECG: Nonspecific Repolarization
Age: >/= 65 years
Risk Factors: >/= 3 Risk Factors or History of CAD
Troponin: </= Normal Limit
Heart Score for Chest Pain Patients: 6
Heart Score Risk: 20.3% MACE over next 6 weeks
Course
Orders/Labs/Results
Orders:
Orders
06/23/24 23:04
Electrocardiogram (*1) Urgent
Reason for Study: Chest Pain
06/23/24 23:05
EKG- Treatment ONCE
06/23/24 23:33
Comprehensive Metabolic Panel Urgent
06/23/24 23:34
Complete Blood Count/With Diff Urgent
NT-proBNP Urgent
Comment: ADD ON
Troponin I Urgent
06/24/24 00:23
CR Chest - 2 Views Urgent
Comment:
Reason For Exam: cp
06/24/24 01:31
Add On- LAB Urgent
Tests Added?: bnp
06/24/24 01:41
Troponin I Urgent
06/24/24 03:48
Apixaban [Eliquis] 5 mg PO NOW STA
06/24/24 05:40
Admit/Transfer Patient As Directed
Co-Sign Provider:
Level of Care: Observation services
Assign to:: Telemetry
Physician / Group: Aris
Diagnosis: Chest Pain
Reason for Telemetry: Chest Pain syndromes
Date to Stop Telemetry: 06/26/24
Time to Stop Telemetry: 11:00
PRN Pain Medication Management As Directed
May give lesser potent ordered pain med per pt: Yes
preference::
Protocol:: Medication orders for pain may be administered in a
manner that supports deferring to patient preference
when the pt is:
- Requesting an ordered lesser potent pain medication.
Least to most potent pain medications are defined
as: acetaminophen < NSAID < tramadol < opioids
(morphine, oxycodone, hydromorphone).
- Requesting a lesser dose of the same medication IF
ORDERED.
- Requesting a less intrusive route of administration
if both routes are prescribed by the provider (PO <
IV).
06/24/24 05:42
Code Status As Directed
Resuscitation Status: Full Code
06/24/24 Breakfast
NPO
Allow oral meds: Yes
Allow clear liquids: Sips of Clears
06/24/24 07:25
Acetaminophen [Tylenol] 650 mg PO Q4HPRN PRN
Morphine Sulfate 2 mg IV Q4HPRN PRN
Nitroglycerin Sublingual [Nitrostat (Sublingual)] 0.4 mg SL [id number] PRN
mesalamine [Lialda] 1.2 grams PO Q48H
06/24/24 07:25
CARDIOLOGY CONSULT Routine
Consulting Provider: Jalen Jimenez
Was physician already notified: No
Reason for consult: Chest pain
Consult Notification Routine
Specialty to Notify: Cardiology
Date consulting provider notified: 06/24/24
Time consulting provider notified: 07:44
Notified:: Provider
Comment: Tony
Activity As Directed
Activity Level: Ambulate
EKG with chest pain [ECG as needed] As Directed
ECG as needed for:: Chest Pain
I/O [Intake/ Output] As Directed
Frequency: Per unit guidelines
Vital Signs As Directed
Frequency: Per unit guidelines
Weight As Directed
Frequency: Daily
Oxygen Therapy [O2 Therapy] [RESP] Routine
Titrate/Wean O2 to maintain O2 sat greater than (%): 94
DX Deep Vein Thrombosis Video Routine
06/24/24 07:39
Troponin I Routine
06/24/24 08:00
Amlodipine [Norvasc] 5 mg PO DAILY
Aspirin Chewable [Low Strength Aspirin] 81 mg PO DAILY
Atorvastatin [Lipitor] 20 mg PO DAILY
ISOSORBIDE MONOnitrate ER [Imdur (Extended Release)] 60 mg PO DAILY
Pantoprazole [Protonix] 40 mg PO DAILY
valsartan-hydrochlorothiazide 1 tablet PO DAILY
06/24/24 18:00
Enoxaparin Sodium [Lovenox] 40 mg SC QPM
06/24/24 22:00
Allopurinol [Zyloprim] 200 mg PO HS
Atenolol [Tenormin] 25 mg PO HS
06/25/24 06:00
EKG [Electrocardiogram (*1)] IN AM
Reason for Study: Chest Pain
Basic Metabolic Panel IN AM
Cardiovascular Evaluation IN AM
Complete Blood Count/No Diff IN AM
06/26/24 11:00
DC Protocol for Telemetry ONCE
Abnormal Lab Results
06/23/24 06/23/24
23:33 23:34
RBC 4.19 L 10^6/uL
(4.70-6.10)
MCV 94.5 H fL
(80.0-94.0)
MCH 34.1 H pg
(27.0-31.0)
Absolute Monos (auto) 1.0 H 10^3/uL
(0.1-0.6)
Monocytes % 10.6 H %
(1.7-9.3)
BUN 22 H mg/dl
(9-20)
Glucose 150 H mg/dl
(70-99)
06/23/24 23:34
06/23/24 23:33
Vital Signs
Initial and Last Documented VS:
Initial Vital Signs
Temp Pulse Resp BP Pulse Ox
97.8 F 64 18 166/74 96
06/23/24 23:00 06/23/24 23:00 06/23/24 23:00 06/23/24 23:00 06/23/24 23:00
Last Documented Vital Signs
Temp Pulse Resp BP Pulse Ox
97.8 F 67 19 149/73 94
06/23/24 23:00 06/24/24 06:45 06/24/24 06:45 06/24/24 06:00 06/24/24 06:45
MDM/Problems Addressed
MDM/Problems Addressed:
New onset atrial fibrillation, chest pain
*Pulse Oximetry
Patient hypoxic: no
*EKG
Interpreted by ED Provider?: Yes
Interpretation: abnormal
Rate: normal
Rhythm: a-fib
Ischemia: non-specific ST changes
*Golf Course Keeper Interpretation
Rate: normal
Interpretation: abnormal
Rhythm: a-fib
*Critical Care Note
Total Time (30-74mins, 75-104mins- exclusive of procedures): Not Applicable
Data Reviewed
Source: patient
Prescriptions/Medications Considered But Not Given:
Consider diltiazem but rate has been controlled
Patient Management
Discussion with other providers: Hospitalist
Escalation/DeEscalation of care consider admission/obs:
78-year-old male with a long history of coronary disease presents with new A-fib. Also having off-and-on chest pain. Will cover with Eliquis but would benefit from cardiology consultation. Admit
ED Attending Note
-
Portions of this chart may have been created with voice recognition software.� Occasional wrong word or��sound alike� substitutions may have occurred due to the inherent limitations of voice recognition software.
Discharge Plan
Departure
Patient Disposition: Admit
Date of Disposition: 06/24/24
Time of Disposition: 03:52
Admit to: Telemetry
Presentation/result/management discussed w/ accepting MD/DO: Hospitalist
Discharge Problem:
Atrial fibrillation, Chest pain
Interventions
Interventions:
*Risk Screen - Suicide Last Done: 06/23/24 23:00
*General Assessment Last Done: 06/23/24 23:31
*Neglect/Abuse Screening Last Done: 06/23/24 23:00
*ED- Fall Risk Assessment Last Done: 06/23/24 23:31
*ED COVID-19 Vaccine History Last Done: 06/23/24 23:31
ED- Cardiac Assessment Last Done: 06/23/24 23:28
[2024-06-24] MEDS: ELIQUIS 5 MG PO (04:26)
--- NOTE | 2024-06-24 05:45 | HPS.HSE ---
Family Physician
-
Family Physician: Lesa Schmidt
Chief Complaint
-
Chest pain
History of Present Illness
Patient is a 78y M with PMH significant for ASCVD, hypertension and ulcerative colitis who presents to ED complaining of chest pain. Patient states that he has been having chest pain off-and-on for the past week or two. He notes that he has
been doing some yard work outside during that time and wondered if he pulled a muscle or something similar. He denies any associated symptoms of diaphoresis, dyspnea, nausea, etc.
Patient states that the chest pain is in the middle of the chest and radiates bilaterally. Mild pain in the back. No radiation to the jaw / arms.
He has taken NTG at home without improvement in his symptoms.
This evening, while resting on the couch, he developed a more severe episodes of substernal chest heaviness / tightness. He presented to the ED for further evaluation.
Medical History
Past Medical History
Past Medical History: Reports Other
Additional Past Medical History:
ASCVD
Hypertension
Ulcerative Colitis
Asthma
Gout
Obesity
Past Surgical History: Reports Other
Additional Past Surgical History:
CABG x 3
PTCA with Stents
Social History
Tobacco: Non-smoker
Alcohol: Occasional (Rare)
Drug: None
Family History
Family History: Other (Strong family history of CAD.)
Allergies / Home Medications
Allergies reflects when Allergies were last updated in [facility].
Home Medications with original date entered in [facility]
Allergy/Medication List:
Allergies
Allergy/AdvReac Type Severity Reaction Status Date / Time
methylprednisolone Allergy pt states Verified 06/23/24 23:04
[From Medrol] he does
not have
any
allergies
Home Medications
allopurinol 100 mg tablet 200 mg PO HS Gout 12/10/16
aspirin 81 mg chewable tablet 81 mg PO DAILY Blood Clot Prevention/Tx 12/10/16
atenolol 25 mg tablet 25 mg PO HS Blood Pressure 12/10/16
mesalamine 1.2 gram tablet,delayed release (Lialda) 1.2 g PO Q48H Gastrointestinal Issue 12/10/16
nitroglycerin 0.4 mg sublingual tablet 0.4 mg sublingual [id number] PRN Chest pain 12/10/16
amlodipine 5 mg tablet 5 mg PO DAILY Blood Pressure 06/01/17
atorvastatin 20 mg tablet 20 mg PO DAILY High Cholesterol 11/28/23
therapeutic multivitamin 1 tab PO WEEKLY Supplement 11/28/23
valsartan 320 mg-hydrochlorothiazide 12.5 mg tablet 1 tab PO DAILY Blood Pressure 11/28/23
isosorbide mononitrate 60 mg tablet,extended release 24 hr 60 mg PO DAILY 06/24/24
omeprazole 20 mg capsule,delayed release 20 mg PO DAILY gerd 06/24/24
Review of Systems
-
History Source: Patient
A 12 point ROS was completed and negative except as noted: Yes
Constitutional: Denies Fever or Chills
Respiratory: Denies Cough or Trouble Breathing
Cardiac: Reports Chest Pain; Denies Palpitations or Syncope
Abdomen/GI: Denies Abdominal Pain, Nausea, Vomiting or Diarrhea
Musculoskeletal: Denies Joint Pain or Edema
Neurological: Reports Headache; Denies Dizzy
Psych: Denies Depression or Anxiety
Physical Exam
Vital Signs
Vital Signs
Temp Pulse Resp BP Pulse Ox
97.8 F 60 13 133/69 94
06/23/24 23:00 06/24/24 05:15 06/24/24 05:15 06/24/24 05:00 06/24/24 05:00
Physical Exam
General: Other (78y M in no acute distress.)
HEENT: Moist mucous membranes and Other (Thick neck.)
Respiratory: Clear; No Wheezes, Rales or Rhonchi
Cardiac: S1/S2, Irregular Rhythm and Murmur (III/ SANDHYA)
GI: Soft, Non Tender, Non Distended and Normal Bowel Sounds
Musculoskeletal: No Clubbing, No Cyanosis and No Edema
Neuro: AO x 3
Laboratory Results
-
06/23/24 23:34
06/23/24 23:33
Laboratory Results
Total Bilirubin 0.8 mg/dl (0.2-1.3) 06/23/24 23:33
AST 32 U/L (17-59) 06/23/24 23:33
ALT 29 U/L (0-50) 06/23/24 23:33
Alkaline Phosphatase 47 U/L (38-126) 06/23/24 23:33
Troponin I < 0.012 ng/ml 06/24/24 01:41
Impression/Plan
-
A/P: Patient is a 78y M with PMH significant for ASCVD, hypertension and ulcerative colitis who presents to ED complaining of chest pain.
Chest Pain
ASCVD
- Observe for further evaluation and treatment.
- EKG without acute ischemic changes, trop undetectable x 2 thus far.
- Had similar presentation with low-risk stress test 11/2023.
- Complete series with trop in AM.
- Cardio evaluation for additional recommendations given risk factors.
- Continue current CV med regimen for now.
- Follow for any new / worsening symptoms.
Arrhythmia
- EKG shows sinus arrhythmia. Clear P waves in lead V1, though rhythm is irregular.
- Does not appear consistent with A-Fib.
- Would hold further Eliquis for now.
- Monitor on tele.
- Cardiology evaluation as noted above.
Aortic Stenosis
- Significant murmur on exam.
- Echo was just completed last month and showed mild- moderate with no change from the year prior.
- No need for repeat study at this time.
Benign Hypertension
- Stable. Continue home medications with holding parameters.
Ulcerative Colitis
- Stable. Continue Lialda.
DVT Prophylaxis: Lovenox
Code Status: Full
--- NOTE | 2024-06-24 07:02 | W.PN.HOSP.TC ---
Today's Communication/Plan
-
Continue Heparin Drip
Cardiac cath tomorrow
NPO after midnight
Assessment / Plan
Assessment / Plan
Physical Exam
General: Not in acute distress
HEENT: Normocephalic. Moist mucous membranes
Respiratory: Clear to Auscultation Bilaterally
Cardiac: S1/S2, RRR with ectopic beats and Murmur (III/ SANDHYA)
GI: Soft, Non Tender, Non Distended and Normal Bowel Sounds
Musculoskeletal: No Cyanosis and No Edema
Neuro: AAO x 3
Assessment/Plan
Patient is a 78y M with PMH significant for ASCVD, hypertension and ulcerative colitis who presents to ED complaining of chest pain.
Chest Pain -- worsening since November 2023 -- suspected ACS
History of CAD, prior CABG and stenting
- EKG without acute ischemic changes, troponins negative x3
- Had similar presentation with low-risk stress test 11/2023.
- Cardio evaluation for additional recommendations given risk factors.
- Aspirin 324 mg, followed by Aspirin 81 mg daily
- Heparin Drip
- Monitor for signs of bleeding or drop in Hgb while on Heparin Drip
- Continue Imdur 60 mg daily
- Cardiac cath tomorrow
Sinus Rhythm with PACs
- EKG shows sinus arrhythmia. Clear P waves in lead V1, though rhythm is irregular.
- Does not appear consistent with A-Fib.
- Continue Atenolol but at increased frequency of Q12H given patient's high blood pressure
- Monitor on tele.
- Cardiology evaluation as noted above.
Aortic Stenosis
- Significant murmur on exam.
- Echo was just completed last month and showed mild- moderate with no change from the year prior.
- Cardiology following
Benign Hypertension
- Stable.
- Atenolol increased for better blood pressure control.
- Continue Amlodipine 5 mg daily, Valsartan 320mg daily and HCTZ 12.5mg daily
Hyperlipidemia
- Continue Atorvastatin
Ulcerative Colitis
- Stable. Continue Lialda.
DVT Prophylaxis: Heparin Drip
Code Status: Full
Anticipated Discharge: > 48 hours
Subjective/Interval History
-
Date of Service: June 24, 2024
Patient was seen and examined. He reported persistent on and off chest pain but at the time of patient encounter he reported doing okay.
Objective Data
-
Labs:
Laboratory Results
06/23/24 06/23/24
23:33 23:34
WBC 9.7
Hgb 14.3
Hct 39.6
Plt Count 232
Sodium 140
Potassium 4.0
Chloride 105
Carbon Dioxide 23
BUN 22 H
Creatinine 1.2
Glucose 150 H
Calcium 9.2
Total Bilirubin 0.8
AST 32
ALT 29
Alkaline Phosphatase 47
Vital Signs:
Vital Signs
Temp Pulse Resp BP Pulse Ox
97.8 F 67 19 149/73 94
06/23/24 23:00 06/24/24 06:45 06/24/24 06:45 06/24/24 06:00 06/24/24 06:45
[2024-06-24 08:13] LABS: Troponin I < 0.012 ng/ml
[2024-06-24] MEDS: DIOVAN 320 MG PO (08:50)
[2024-06-24] MEDS: NORVASC 5 MG PO (08:50)
[2024-06-24] MEDS: PROTONIX 40 MG PO (08:52)
[2024-06-24] MEDS: ORETIC 12.5 MG PO (08:52)
[2024-06-24] MEDS: IMDUR (EXTENDED RELEASE) 60 MG PO (08:52)
[2024-06-24] MEDS: LOW STRENGTH ASPIRIN 81 MG PO (08:52)
[2024-06-24] MEDS: LIPITOR 20 MG PO (08:52)
[2024-06-24] MEDS: TENORMIN 25 MG PO ×2 (11:15→21:08)
[2024-06-24] MEDS: LOW STRENGTH ASPIRIN 243 MG PO (11:15)
--- NOTE | 2024-06-24 11:15 | CON.CAR ---
Consultation
Consultation Request
Date/Time Consultation Requested: 06/24/24, 7am
Date/Time Consultation Performed: 06/24/24, 10am
Requesting Provider: Kennedy
Performing Provider: Tony
Reason for Consultation: chest pain
Medical History
-
Chief Complaint: chest pain
History of Present Illness:
78 yo male with PMH of CAD, s/p CABG, then stenting, last 2006, HTN, hyperlipidemia, moderate is admitted with chest pain. He has been experiencing mid sternal chest pressure following activity such as yard work. It seems to be worsening. He is
currently chest pain free.
Past Medical History
Past Medical History: CAD, HTN, Hypercholesterolemia and Valvular Disease (aortic stenosis)
Past Surgical History: Cardiac (CABG 1997)
Social History
Tobacco: Non-Smoker
Family History
Family History: CAD (father)
Allergies / Home Medications
Allergy/AdvReac Type Severity Reaction Status Date / Time
methylprednisolone Allergy pt states Verified 06/23/24 23:04
[From Medrol] he does
not have
any
allergies
�Medication �Instructions �Recorded �Confirmed �Type
allopurinol 100 mg tablet 200 mg PO HS Gout 12/10/16 06/24/24 History
aspirin 81 mg chewable tablet 81 mg PO DAILY Blood Clot 12/10/16 06/24/24 History
Prevention/Tx
atenolol 25 mg tablet 25 mg PO HS Blood Pressure 12/10/16 06/24/24 History
mesalamine 1.2 gram tablet,delayed 1.2 g PO Q48H Gastrointestinal 12/10/16 06/24/24 History
release (Lialda) Issue
nitroglycerin 0.4 mg sublingual 0.4 mg sublingual [id number] PRN 12/10/16 06/24/24 History
tablet Chest pain
amlodipine 5 mg tablet 5 mg PO DAILY Blood Pressure 06/01/17 06/24/24 History
atorvastatin 20 mg tablet 20 mg PO DAILY High Cholesterol 11/28/23 06/24/24 History
therapeutic multivitamin 1 tab PO WEEKLY Supplement 11/28/23 06/24/24 History
valsartan 320 1 tab PO DAILY Blood Pressure 11/28/23 06/24/24 History
mg-hydrochlorothiazide 12.5 mg
tablet
isosorbide mononitrate 60 mg 60 mg PO DAILY 06/24/24 06/24/24 History
tablet,extended release 24 hr
levothyroxine 50 mcg PO DAILY 06/24/24 06/24/24 History
omeprazole 20 mg capsule,delayed 20 mg PO DAILY gerd 06/24/24 06/24/24 History
release
Review of Systems
-
History Source: Patient
All other systems: Negative unless noted
Cardiac: Chest Pain
Physical Exam
Vital Signs
Temp Pulse Resp BP Pulse Ox
97.5 F 57 16 174/77 95
06/24/24 11:02 06/24/24 11:02 06/24/24 11:02 06/24/24 11:02 06/24/24 11:02
Lab Results
06/23/24 23:33
Troponin I < 0.012 ng/ml 06/24/24 07:39
Lui-J-Nevsmqtemdz Pept 397 pg/ml 06/23/24 23:34
Physical Exam
General: Well Developed and Well Nourished
HEENT: Normocephalic and Anicteric
Respiratory: Clear and Non Labored Respirations
Cardiac: S1/S2, Regular Rhythm, Murmur (III/ systolic at RUSB), Peripheral Edema (none) and JVD (none)
GI: Soft and Non Tender
Musculoskeletal: Clubbing, No Cyanosis and No Edema
Skin: Warm and Dry
Neuro: AO x 3
Psych: Calm
Impression / Plan
-
78 yo male with PMH of CAD, s/p CABG, then stenting, last 2006, HTN, hyperlipidemia, moderate is admitted with chest pain. He has been experiencing mid sternal chest pressure following activity such as yard work.
# Chest pain
-stress test last summer with no ischemia, but sxs are worsening
-concern for ACS/unstable angina
-diagnosis is a threat to life
-ASA 324mg, heparin drip
-monitor Hgb and PTT while on heparin drip
-cath tomorrow
#Rhythm
-there was concern for A fib, but rhythm is sinus with PAC's
-continue beta jack
-trend tele
# CAD, prior CABG and stenting
-plan as above
-continue imdur 60mg daily
# HTN
-BP is elevated: increase atenolol to 25mg bid
-cont amlodipine 5mg daily, valsartan 320mg daily, HCTZ 12.5mg daily
# Hyperlipidemia
-chronic, continue atorvastatin
# Aortic stenosis
-looked moderate on last echo
Testing
Echo (05/22/24): EF 70-75%, moderate (39/21, 1.3)
Nuclear stress (11/2023): no ischemia
Data Reviewed
-
EKG: Tracing Personally Visualized and interpreted (SR, 1st degree AVB, PAC's)
Medical Tests (Nuc Med, Echo etc): Report Reviewed by me (Echo (05/22/24): EF 70-75%, moderate (39/21, 1.3). Nuclear stress (11/2023): no ischemia)
Labs: Labs Reviewed by me
[2024-06-24 11:18] LABS: Hematocrit 41.6 % (39.0-52.0); Hemoglobin 14.8 g/dL (13.0-18.0); Mean Corp Hgb Conc. 35.6 g/dL (33.0-37.0); Mean Corpuscular Hgb 33.5 pg (27.0-31.0); Mean Corpuscular Volume 94.1 fL (80.0-94.0); Mean Platelet Volume 9.5 fL (7.4-10.4); Platelet Count 227 10^3/uL (130-400); Red Blood Cell Count 4.42 10^6/uL (4.70-6.10); Red Cell Dist. Width 13.8 % (11.5-14.5)
[2024-06-24 11:31] LABS: APTT 37.1 Sec (23.4-35.0)
[2024-06-24] MEDS: HEPARIN 25000 UNITS/250 ML IV (11:58)
--- NOTE | 2024-06-24 14:48 | CM ---
CM met with patient in room. Patient confirmed demographics. Patient lives with . Patient does not have a history of VN, SNF or DME. Patient is active with his PCP. Patient has medication coverage and uses [facility] for medication services
CM provided ELISE letter. Patient encourage to call [employer] with any further billing questions.
PLAN: home no needs.
[2024-06-24 18:26] LABS: APTT 150.3 Sec (23.4-35.0)
[2024-06-24] MEDS: ZYLOPRIM 200 MG PO (21:08)
[2024-06-25] VITALS (38 sets, daily range): BP systolic 73–168; BP diastolic 45–87; BMI 30.7
[2024-06-25 03:01] LABS: APTT 141.5 Sec (23.4-35.0)
--- NOTE | 2024-06-25 05:53 | PTCARENOTE ---
Pt's EKG showing that afib with slow ventricular response has replaced sinus rhythm with nonspecific t-wave abnormality. Pt denies chest pain, HR in the 50s on tele throughout the night. [employer] Delmis notified, order for mag added to AM labs. Will
continue current plan of care.
--- NOTE | 2024-06-25 07:31 | W.PN.HOSP.TC ---
Today's Communication/Plan
-
Cardiac cath today
Continue Heparin Drip, Aspirin, etc.
Assessment / Plan
Assessment / Plan
Physical Exam
General: Not in acute distress
HEENT: Normocephalic. Moist mucous membranes
Respiratory: Clear to Auscultation Bilaterally
Cardiac: S1/S2, RRR with ectopic beats and Murmur (III/ SANDHYA)
GI: Soft, Non Tender, Non Distended and Normal Bowel Sounds
Musculoskeletal: No Cyanosis and No Edema
Neuro: AAO x 3
Assessment/Plan
Patient is a 78y M with PMH significant for ASCVD, hypertension and ulcerative colitis who presents to ED complaining of chest pain.
Chest Pain -- worsening since November 2023 -- suspected ACS
History of CAD, prior CABG and stenting
- EKG without acute ischemic changes, troponins negative x3
- Had similar presentation with low-risk stress test 11/2023.
- Cardio evaluation for additional recommendations given risk factors.
- Aspirin 324 mg given previously this hospitalization, continue Aspirin 81 mg daily
- Heparin Drip
- Monitor for signs of bleeding or drop in Hgb while on Heparin Drip
- Continue Imdur 60 mg daily
- Cardiac cath today
Sinus Rhythm with PACs
- EKG shows sinus arrhythmia. Clear P waves in lead V1, though rhythm is irregular.
- Does not appear consistent with A-Fib.
- Continue Atenolol but at increased frequency of Q12H given patient's high blood pressure
- Monitor on tele.
- Cardiology evaluation as noted above.
Aortic Stenosis
- Significant murmur on exam.
- Echo was just completed last month and showed mild- moderate with no change from the year prior.
- Cardiology following
Benign Hypertension
- Stable.
- Atenolol increased for better blood pressure control.
- Continue Amlodipine 5 mg daily, Valsartan 320mg daily and HCTZ 12.5mg daily
Hyperlipidemia
- Continue Atorvastatin
Ulcerative Colitis
- Stable. Continue Lialda.
DVT Prophylaxis: Heparin Drip
Code Status: Full
Anticipated Discharge: Within 24 hours
Subjective/Interval History
-
Date of Service: June 25, 2024
Patient was seen and examined. He was ambulating well and reported some mild chest pain, but denied any new significant symptoms or complaints.
Objective Data
-
Labs:
Laboratory Results
06/25/24 06/25/24 06/25/24
01:45 02:34 06:00
WBC Pending
Hgb Pending
Hct Pending
Plt Count Pending
APTT Cancelled 141.5 H
Sodium Pending
Potassium Pending
Chloride Pending
Carbon Dioxide Pending
BUN Pending
Creatinine Pending
Glucose Pending
Calcium Pending
06/25/24
10:17
WBC
Hgb
Hct
Plt Count
APTT Pending
Sodium
Potassium
Chloride
Carbon Dioxide
BUN
Creatinine
Glucose
Calcium
Vital Signs:
Vital Signs
Temp Pulse Resp BP Pulse Ox
97.8 F 51 18 145/74 96
06/25/24 03:11 06/25/24 03:11 06/25/24 03:11 06/25/24 03:11 06/25/24 03:11
I&O
06/24/24 06/25/24 06/26/24
06:59 06:59 06:59
Intake Total 310 / 310
Balance 310 / 310
[2024-06-25] MEDS: DIOVAN 320 MG PO (08:46)
[2024-06-25] MEDS: NORVASC 5 MG PO (08:46)
[2024-06-25] MEDS: IMDUR (EXTENDED RELEASE) 60 MG PO (08:46)
[2024-06-25] MEDS: ORETIC 12.5 MG PO (08:46)
[2024-06-25] MEDS: PROTONIX 40 MG PO (08:46)
[2024-06-25] MEDS: LIPITOR 20 MG PO (08:46)
[2024-06-25] MEDS: TENORMIN 25 MG PO ×2 (08:47→20:32)
[2024-06-25] MEDS: LOW STRENGTH ASPIRIN 81 MG PO (08:47)
--- NOTE | 2024-06-25 11:04 | W.PN.CD ---
Today's Communication / Plan
-
Cath.
Labs.
BP control after cath.
Impression / Plan
-
Impression/Plan: 78 yo male with PMH of CAD, s/p CABG (LATHAM to LAD, SVG to OM3), subsequent retrograde PCI (overlapping Taxus 2.75 x 16, 2.75 x 16 and 2.75 x 12 INDIGO) to the proximal OM3 (01/12/2006), HTN, hyperlipidemia, moderate is admitted
with chest pain following activity such as yard work concerning for accelerating/unstable angina.
#Chest pain, concern for ACS/Unstable Angina
-Acute on chronic.
-Troponin negative x3.
-Stress test last summer with no ischemia, but sxs are worsening.
-Diagnosis is a threat to life
-Continue ASA, heparin drip.
-Monitor Hgb and PTT while on heparin drip.
-Cath today.
#Rhythm
-Concern for A fib, but rhythm is sinus with PAC's.
-Continue beta jack.
-Telemetry.
#CAD
-Chronic.
-Prior CABG (LATHAM to LAD, SVG to OM#) and subsequent retrograde PCI of OM3 that backfills the entire Cx system (overlapping Taxus 2.75 x 16, 2.75 x 16 and 2.75 x 12 INDIGO, 01/12/2006).
-Repeat cardiac catheterization today to clarify anatomy.
-Continue isosorbide mononitrate 60mg daily.
#HTN
-Acute on chronic.
-Atenolol increased to 25mg bid.
-Continue amlodipine 5mg daily, valsartan 320mg daily, HCTZ 12.5mg daily.
#Hyperlipidemia
-Chronic, stable.
-Cholesterol panel pending.
-Continue atorvastatin.
# Aortic stenosis
-Chronic, stable.
-Moderate on last echo.
Subjective/Interval History:
BP remains elevated.
Troponin negative x3.
Labs pending.
DATA:
Transthoracic Echocardiogram, 05/22/2024:
CONCLUSIONS
LV ejection fraction is 70-75%, by visual assessment. No regional wall motion
abnormalities are seen.
Normal right ventricular size and function.
Mild to moderate aortic stenosis; peak/mean gradients across the aortic valve
are 39/21 mmHg, calculated DOMINIC is 1.3 cm2.
No significant change since the prior study of 05/19/2023.
Physical Exam
Vital Signs/Labs
Vital Signs
Temp Pulse Resp BP Pulse Ox
36.7 C 56 18 168/79 94
06/25/24 07:00 06/25/24 10:12 06/25/24 10:12 06/25/24 08:46 06/25/24 10:12
06/23/24 06/24/24 06/25/24
11:59 11:59 11:59
Actual Weight 97.114 kg 97.097 kg
APTT 141.5 Sec (23.4-35.0) H 06/25/24 02:34
06/23/24
23:34
Wlp-F-Jvpmsdgjdbz Pept 397
LAB Results
06/23/24 06/24/24 06/24/24
23:34 01:41 07:39
Troponin I < 0.012 < 0.012 < 0.012
Physical Exam
Constitutional: No acute distress and Comfortable
EENT: Anicteric and Moist mucous membranes
Cardiovascular: Rhythm & rate is regular, Pedal edema is absent, JVD pressure is normal, S1S2 is normal and Murmur/rub/gallop absent
Respiratory: Respiratory effort normal, Lungs clear to auscul., Wheeze Absent, Crackles Absent and Rhonchi Absent
GI: Soft, Distention absent, Flat, Non tender and Normal bowel sounds
Neuro/Psych: AO x 3
Data Reviewed
-
Date of Service: June 25, 2024
Medical Decision Making: Reviewed Test Results, Independent Historian Assessment and Test Interpretation
EKG: Tracing Personally Visualized and interpreted and Report Reviewed by me
Echo: Report Reviewed by me
X-Ray/CT/US/MRI/NUC/PET: Image Personally Visualized and interpreted and Report Reviewed by me
Medical Tests (PFT, Pathology etc): Image Personally Visualized and interpreted and Report Reviewed by me
Labs: Labs Reviewed by me
Old Records: Reviewed
[2024-06-25 12:15] LABS: ACT-LR - POC 397 Seconds (116-155)
[2024-06-25 12:46] LABS: ACT-LR - POC > 397 Seconds (116-155)
--- NOTE | 2024-06-25 12:52 | PTCARENOTE ---
received patient from manager cardiac cath with left fem. arterial sheath intact, zero at bedside. ACT in manager cardiac cath 321. patient aware of post cath instructions, verbalizes understanding. monitor shows SB, VSS.
[2024-06-25 13:15] LABS: ACT-LR - POC 306 Seconds (116-155)
--- NOTE | 2024-06-25 14:15 | CM ---
Reviewed chart. Mr. Reinoso was transferred to IVU. Met with Mr. Reinoso to review discharge plans. He states prior to admission he states he resides with his spouse in a two story home with two steps to enter. He states he has a full flight of
steps to get to bedroom/full bathroom. He states he has a powder room on the first floor. He states prior to admission he was independent with ambulation and adls. He states he has a walker at home that he uses he had hamstring tear. He states
he has a prescription plan with [facility] and uses [facility]. Telephone call to [facility], ([phone]) to check on co-pay for Brilinta 90 mg po bid. His co-pay would be $47.00 a month or $126.00 for 90 days. Telephone call to [facility],([phone]) to see if they have Brilinta 90 mg po bid in stock. Currently [facility] has it in stock. Medical work-up in progress. The discharge plan is to return home with his spouse when medically stable.
[2024-06-25 14:46] LABS: ACT-LR - POC 244 Seconds (116-155)
--- NOTE | 2024-06-25 14:54 | PTCARENOTE ---
downloaded signs from previous floor.
[2024-06-25 15:53] LABS: ACT-LR - POC 224 Seconds (116-155)
--- NOTE | 2024-06-25 15:55 | ITS.CL.ANGIO ---
Site Engineer - Angioplasty
Angioplasty
Procedure Report:
CARDIAC CATHETERIZATION REPORT
Date of Procedure: 06/25/2024
Referring: Jalen Jimenez M.D., Ph.D.
INDICATION: Known CAD status post bypass and prior PCI, unstable angina.
PROCEDURE:
1. Left heart catheterization.
2. Coronary angiography.
3. Bypass angiography.
4. Successful PCI of the distal RCA.
A total of 62 minutes of procedural/moderate sedation was utilized. An independent medical physicist was present to assist with and help manage the patient's level of consciousness and physiologic status.
ACCESS:
1. 6 [place] left common femoral artery using a modified Seldinger technique with a micropuncture kit under ultrasound guidance. Ultrasound image obtained.
CATHETERS:
1. 5 [place] JR4.
2. 5 [place] JL4.
3. 6 [place] AR-1 guiding catheter.
HEMODYNAMIC DATA
Weight (kg): 97.1
AO (s/d/x, mmHg): 140/71/87
LV (s/x mmHg): 169/18 (A wave to 26)
AV gradient (x, mmHg): 19
LEFT VENTRICULOGRAPHY: Not performed.
CORONARY ANGIOGRAPHY
Dominance: Right.
Left Main: Chronically totally occluded at its origin.
LAD: Normal size vessel giving rise to 1 significant diagonal. The vessel is chronically totally occluded in the mid LAD.
Ramus: Congenitally absent.
Circumflex: Large size, nondominant vessel giving rise to 3 obtuse marginals. Patent stents are observed in the distal circumflex leading into the third obtuse marginal.
RCA: Normal size, dominant vessel. There is a 95% lesion in the distal RCA leading to STARR I flow in the RPDA.
BYPASS GRAFT ANGIOGRAPHY
LATHAM to LAD: Normal size graft with end-to-side anastomosis to the distal LAD. There is no evidence of stenosis or degeneration.
LRA to OM 3: Normal size graft with end-to-side anastomosis to the third obtuse marginal. This graft backfills the entire circumflex system and the proximal LAD including the septal perforators down to the level of the mid LAD occlusion.
INTERVENTION(S)
1. Successful PCI of the 95% distal RCA lesion (Medtronic Daniel Broussard 2.5 x 18 INDIGO, postdilated with a 2.5 NC balloon throughout and a 3.0 x 8 NC balloon in the proximal margin) with reduction in stenosis to 0%, restoring STARR-3 flow.
Narrative:
The decision was made to proceed with percutaneous coronary intervention. The diagnostic catheter was removed over a wire and a 6Fr AR-1 guiding catheter was advanced to the aortic root and seated in the right coronary artery. Additional heparin was
given and a Power Turn Flex wire was advanced into the distal RPDA. The 95% distal RCA lesion was predilated with a 2.0 x 12 semi-compliant balloon to 12 liliana, restoring STARR-3 flow. The semi-compliant balloon was removed and a Medtronic [place]
Broussard 2.5 x 18 drug-eluting stent was advanced. The stent was deployed at 12 atmospheres. The stent balloon was removed. A 2.5 x 12 noncompliant balloon was advanced into the stent and the stent was postdilated to 14 atmospheres. The
noncompliant balloon was withdrawn and a 3.0 x 8 noncompliant balloon was advanced. The proximal margin of the stent was postdilated to 14 liliana. This noncompliant balloon was also removed. Angiography was performed in orthogonal views, confirming
good stent expansion and an excellent angiographic result. The coronary wire was withdrawn and the guide was disengaged from the artery. The catheter was removed over a standard J-wire.
Closure Device: Manual pressure for the left common femoral artery.
Radiation (mGy): 1260.70
DAP (cm2.Gy): 96.4632
Fluoroscopy time (minutes): 11.9
CONCLUSIONS
1. Right dominant circulation with chronic total occlusion of the ostial left main coronary artery, a chronic total occlusion of the distal mid LAD status post prior bypass (patent LATHAM to LAD, patent LRA to OM 3) with subsequent retrograde PCI of
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
2.5 x 18 INDIGO, postdilated with a 2.5 NC balloon throughout and a 3.0 x 8 NC balloon in the proximal margin) with reduction in stenosis to 0%, restoring STARR-3 flow.
2. Mild to moderately elevated filling pressures (LVEDP = 18 mmHg at 97.1 kg).
3. Probably moderate aortic valve stenosis (mean AV gradient 19 mmHg).
RECOMMENDATIONS:
1. Expectant management after cardiac catheterization via left common femoral approach.
2. Limited weight bearing for one week.
3. Dual antiplatelet therapy with aspirin and ticagrelor for at least 12 months, followed by aspirin indefinitely.
4. OMT/GDMT as hemodynamics will tolerate.
5. Aggressive secondary prevention with high-dose, high potency statin.
6. Echocardiogram ordered and pending.
7. Referral to cardiac rehab.
Copy to: Jalen Jimenez M.D., Ph.D., Lesa Schmidt M.D., Lalit Guzman M.D., PhD
Shar Omalley DO, FACC, FACP
[2024-06-25 16:57] LABS: ACT-LR - POC 200 Seconds (116-155)
[2024-06-25 17:43] LABS: ACT-LR - POC 186 Seconds (116-155)
[2024-06-25 17:54] LABS: Hematocrit 39.5 % (39.0-52.0); Hemoglobin 14.3 g/dL (13.0-18.0); Mean Corp Hgb Conc. 36.2 g/dL (33.0-37.0); Mean Corpuscular Hgb 33.6 pg (27.0-31.0); Mean Corpuscular Volume 92.9 fL (80.0-94.0); Mean Platelet Volume 9.6 fL (7.4-10.4); Platelet Count 228 10^3/uL (130-400); Red Blood Cell Count 4.25 10^6/uL (4.70-6.10); Red Cell Dist. Width 13.7 % (11.5-14.5); White Blood Cell Count 8.4 10^3/uL (4.8-10.8)
[2024-06-25 18:03] LABS: Blood Urea Nitrogen 19 mg/dl (9-20); Carbon Dioxide 27 mmol/L (22-30); Chloride 107 mmol/L (98-107); Estimated Creatinine Clearance 70 ml/min; Glucose 99 mg/dl (70-99); HDL Cholesterol 44 mg/dl; LDL Cholesterol, Calculated 61 mg/dl; Magnesium 1.9 mg/dl (1.6-2.3); Potassium 3.5 mmol/L (3.5-5.1); Sodium 141 mmol/L (135-145); Total Cholesterol 134 mg/dl (50-199); Triglyceride 145 mg/dl (10-149); Very Low Density Lipoprotein 29 mg/dl (0-30); eGFR > 60.00
[2024-06-25 18:07] LABS: ACT-LR - POC 174 Seconds (116-155)
--- NOTE | 2024-06-25 19:20 | PTCARENOTE ---
ACT completed, Dr. Omalley was just at bedside, ready to pull left fem arterial sheath. sheath pulled and manual pressure applied for 20min. patient became SB, HR in the 30's and BP 74/p, and patient felt like he had to have a BM, atropine 1mg IV
given and brought HR to 77 and BP 130/81. TT Dr. Omalley aware., no further orders.
--- NOTE | 2024-06-25 19:29 | PTCARENOTE ---
documented post angiography right fem. artery and that is incorrect it is left fem. artery.
[2024-06-25] MEDS: TYLENOL 650 MG PO (20:31)
[2024-06-25] MEDS: BRILINTA 90 MG PO (20:33)
--- NOTE | 2024-06-25 21:15 | PTCARENOTE ---
Patient received at change of shift resting in the bed. Presently ordered bedrest until 2244. Discussed with patient bedrest, limb restrictions, HOB restrictions and activity restrictions following his cath procedure. Sinus anastasia to sinus rhythm on
telemetry. Denies chest pain. Reports mild tenderness at his left groin site, see MAR. Left groin puncture with gauze and tegaderm C/D/I, surrounding area soft to palpation, pedal pulse palpable. Oxygen saturation on room air 96-97%. Plan of care
discussed with patient. Call marcano within reach. Care ongoing.
[2024-06-25] MEDS: ZYLOPRIM 200 MG PO (22:46)
[2024-06-26 02:33] VITALS: BMI 30.3
[2024-06-26 02:45] VITALS: BP 134/74
[2024-06-26 03:11] LABS: Hematocrit 39.5 % (39.0-52.0); Hemoglobin 14.3 g/dL (13.0-18.0); Mean Corp Hgb Conc. 36.2 g/dL (33.0-37.0); Mean Corpuscular Volume 93.8 fL (80.0-94.0); Mean Platelet Volume 9.4 fL (7.4-10.4); Platelet Count 233 10^3/uL (130-400); Red Blood Cell Count 4.21 10^6/uL (4.70-6.10); Red Cell Dist. Width 13.6 % (11.5-14.5); White Blood Cell Count 11.8 10^3/uL (4.8-10.8)
[2024-06-26 03:33] LABS: Blood Urea Nitrogen 21 mg/dl (9-20); Calcium 9.3 mg/dl (8.4-10.2); Carbon Dioxide 26 mmol/L (22-30); Chloride 105 mmol/L (98-107); Estimated Creatinine Clearance 58 ml/min; Glucose 170 mg/dl (70-99); Potassium 4.1 mmol/L (3.5-5.1); Sodium 140 mmol/L (135-145); eGFR > 60.00
[2024-06-26 07:28] VITALS: BP 136/78
[2024-06-26] MEDS: LOW STRENGTH ASPIRIN 81 MG PO (07:50)
[2024-06-26] MEDS: PROTONIX 40 MG PO (07:50)
[2024-06-26] MEDS: TENORMIN 25 MG PO (07:50)
[2024-06-26] MEDS: NORVASC 5 MG PO (07:51)
[2024-06-26] MEDS: DIOVAN 320 MG PO (07:51)
[2024-06-26] MEDS: LIPITOR 40 MG PO (07:51)
[2024-06-26] MEDS: IMDUR (EXTENDED RELEASE) 60 MG PO (07:51)
[2024-06-26] MEDS: BRILINTA 90 MG PO (07:52)
--- NOTE | 2024-06-26 08:13 | W.PN.CD ---
Today's Communication / Plan
-
Referral to cardiac rehab.
Discharge.
Impression / Plan
-
Impression/Plan: 78 yo male with PMH of CAD, s/p CABG (LATHAM to LAD, SVG to OM3), subsequent retrograde PCI (overlapping Taxus 2.75 x 16, 2.75 x 16 and 2.75 x 12 INDIGO) to the proximal OM3 (01/12/2006), HTN, hyperlipidemia, moderate is admitted
with chest pain following activity such as yard work concerning for accelerating/unstable angina.
#Unstable Angina/ACS
-Acute on chronic.
-Troponin negative x3.
-Diagnosis is a threat to life
-S/P PCI to 95% dRCA lesion with STARR I flow (Medtronic [place] Bim 2.5 x 18 INDIGO, post dilated with a 2.5 NCB throughout, 3.0 x 8 NCB in the proximal margin) with reduction in stenosis to 0%, restoring STARR III flow.
-DAPT with aspirin + ticagrelor for 12 months, followed by aspirin indefinitely.
-OMT/GDMT as hemodynamics will tolerate. Atorvastatin increased to 40 mg daily.
-Referral to cardiac rehab.
#Rhythm
-Initial concern for atrial fibrillation, but rhythm is sinus with PAC's.
-Continue beta jack.
-Telemetry.
#CAD
-Chronic.
-Prior CABG (LATHAM to LAD, SVG to OM#) and subsequent retrograde PCI of OM3 that backfills the entire Cx system (overlapping Taxus 2.75 x 16, 2.75 x 16 and 2.75 x 12 INDIGO, 01/12/2006).
-Repeat cardiac catheterization today to clarify anatomy.
-Continue isosorbide mononitrate 60mg daily.
#HTN
-Acute on chronic.
-Atenolol increased to 25mg bid.
-Continue amlodipine 5mg daily, valsartan 320mg daily, HCTZ 12.5mg daily.
#Hyperlipidemia
-Chronic, stable.
-Total cholesterol = 134, LDL = 61, HDL = 44, Triglycerides = 145.
-Atorvastatin increased to 40 mg daily.
-Goal LDL < 55.
# Aortic stenosis
-Chronic, stable.
-Moderate on last echo, probably moderate by cath (mean gradient 19 mmHg).
#Dispo
-IVU status.
-Full code.
-Discharge planning.
Subjective/Interval History:
Cath showed new 95% dRCA lesion with STARR I flow.
Successful PCI.
DAPT started. Atorvastatin increased to 40 mg daily.
Femoral sheath pulled in IVU yesterday - vagal reaction treated with atropine.
DATA:
Transthoracic Echocardiogram, 05/22/2024:
CONCLUSIONS
LV ejection fraction is 70-75%, by visual assessment. No regional wall motion
abnormalities are seen.
Normal right ventricular size and function.
Mild to moderate aortic stenosis; peak/mean gradients across the aortic valve
are 39/21 mmHg, calculated DOMINIC is 1.3 cm2.
No significant change since the prior study of 05/19/2023.
Cardiac Catheterization/PCI, 06/25/2024:
CONCLUSIONS
1. Right dominant circulation with chronic total occlusion of the ostial left main coronary artery, a chronic total occlusion of the distal mid LAD status post prior bypass (patent LATHAM to LAD, patent LRA to OM 3) with subsequent retrograde PCI of
the left circumflex through the bypass graft which now supplies the entire circumflex territory and the proximal LAD to the level of the mid LAD [employer] SALES PROFESSIONAL and a 95% distal RCA lesion with STARR I flow, status post successful PCI (Medtronic Daniel Bim
2.5 x 18 INDIGO, postdilated with a 2.5 NC balloon throughout and a 3.0 x 8 NC balloon in the proximal margin) with reduction in stenosis to 0%, restoring STARR-3 flow.
2. Mild to moderately elevated filling pressures (LVEDP = 18 mmHg at 97.1 kg).
3. Probably moderate aortic valve stenosis (mean AV gradient 19 mmHg).
Physical Exam
Vital Signs/Labs
Vital Signs
Temp Pulse Resp BP Pulse Ox
36.8 C 52 16 136/78 93
06/26/24 02:45 06/26/24 07:51 06/26/24 02:45 06/26/24 07:51 06/26/24 02:45
06/24/24 06/25/24 06/26/24
11:59 11:59 11:59
Actual Weight 97.114 kg 97.097 kg 95.9 kg
06/26/24 02:43
06/26/24 02:43
APTT Cancelled 06/25/24 15:00
Magnesium 1.9 mg/dl (1.6-2.3) 06/25/24 17:41
Triglycerides 145 mg/dl (10-149) 06/25/24 17:41
LDL Cholesterol, Calc 61 mg/dl 06/25/24 17:41
VLDL Cholesterol, Calc 29 mg/dl (0-30) 06/25/24 17:41
HDL Cholesterol 44 mg/dl 06/25/24 17:41
06/23/24
23:34
Xjk-J-Xpinqvpwsab Pept 397
LAB Results
06/23/24 06/24/24 06/24/24
23:34 01:41 07:39
Troponin I < 0.012 < 0.012 < 0.012
Physical Exam
Constitutional: No acute distress and Comfortable
EENT: Anicteric and Moist mucous membranes
Cardiovascular: Rhythm & rate is regular, Pedal edema is absent, JVD pressure is normal, Systolic murmur present and S1S2 is normal
Respiratory: Respiratory effort normal, Lungs clear to auscul., Wheeze Absent, Crackles Absent and Rhonchi Absent
GI: Soft, Distention absent, Flat, Non tender and Normal bowel sounds
Neuro/Psych: AO x 3
Other: Cath Site (Left femoral access site is C/D/I.)
Data Reviewed
-
Date of Service: June 26, 2024
Medical Decision Making: Reviewed Test Results, Independent Historian Assessment and Test Interpretation
EKG: Tracing Personally Visualized and interpreted and Report Reviewed by me
Echo: Report Reviewed by me
X-Ray/CT/US/MRI/NUC/PET: Image Personally Visualized and interpreted and Report Reviewed by me
Medical Tests (PFT, Pathology etc): Image Personally Visualized and interpreted, Report Reviewed by me, Discussed with Physician, Discussed with Nurse and Discussed with Patient
Labs: Labs Reviewed by me
Old Records: Reviewed
--- NOTE | 2024-06-26 08:14 | W.PN.HOSP.TC ---
Today's Communication/Plan
-
Discharge today
Assessment / Plan
Assessment / Plan
Physical Exam
General: Not in acute distress
HEENT: Normocephalic. Moist mucous membranes
Respiratory: Clear to Auscultation Bilaterally
Cardiac: S1/S2, RRR with ectopic beats and Murmur (III/ SANDHYA)
GI: Soft, Non Tender, Non Distended and Normal Bowel Sounds
Musculoskeletal: No Cyanosis and No Edema
Neuro: AAO x 3
Assessment/Plan
Patient is a 78y M with PMH significant for ASCVD, hypertension and ulcerative colitis who presents to ED complaining of chest pain.
Chest Pain -- S/P PCI to 95% dRCA lesion with STARR I flow ([employer] [place] 2.5 x 18 INDIGO, post dilated with a 2.5 NCB throughout, 3.0 x 8 NCB in the proximal margin) with reduction in stenosis to 0%, restoring STARR III flow
History of CAD, prior CABG and stenting
- EKG without acute ischemic changes, troponins negative x3
- Had similar presentation with low-risk stress test 11/2023.
- Cardio evaluation for additional recommendations given risk factors.
- Aspirin 324 mg given previously this hospitalization, continue Aspirin 81 mg daily
- Heparin Drip
- Monitor for signs of bleeding or drop in Hgb while on Heparin Drip
- Continue Imdur 60 mg daily
- Cardiac cath took place on 06/26/24: S/P PCI to 95% dRCA lesion with STARR I flow ([employer] [place] 2.5 x 18 INDIGO, post dilated with a 2.5 NCB throughout, 3.0 x 8 NCB in the proximal margin) with reduction in stenosis to
0%, restoring STARR III flow.
- DAPT with aspirin + ticagrelor for 12 months, followed by aspirin indefinitely
- Atorvastatin 40 mg daily
- Cardiac Rehab on discharge
Sinus Rhythm with PACs
- EKG shows sinus arrhythmia. Clear P waves in lead V1, though rhythm is irregular.
- Does not appear consistent with A-Fib.
- Continue Atenolol but at increased frequency of Q12H given patient's high blood pressure
- Monitor on tele.
- Cardiology evaluation as noted above.
Aortic Stenosis
- Significant murmur on exam.
- Echo was just completed last month and showed mild- moderate with no change from the year prior.
- Cardiology following
Benign Hypertension
- Stable.
- Atenolol increased to 25 mg BID for better blood pressure control.
- Continue isosorbide mononitrate 60mg daily
- Continue Amlodipine 5 mg daily, Valsartan 320mg daily and HCTZ 12.5mg daily
Hyperlipidemia
- Continue Atorvastatin
Ulcerative Colitis
- Stable. Continue Lialda.
DVT Prophylaxis: SCDs. If patient stays here, then Lovenox for DVT prophylaxis.
Code Status: Full
More than 30 minutes spent in discharge including
Final examination of the patient
Summarizing hospital stay
Instructions for continuing care to all relevant caregivers
Preparation of discharge records, prescriptions, and referral forms
Total time spent (in minutes): 38
Anticipated Discharge: Today
Subjective/Interval History
-
Date of Service: June 26, 2024
Patient was seen and examined. He denied any chest pain, shortness of breath or any other new symptoms or complaints.
Objective Data
-
Labs:
Laboratory Results
06/26/24
02:43
WBC 11.8 H
Hgb 14.3
Hct 39.5
Plt Count 233
Sodium 140
Potassium 4.1
Chloride 105
Carbon Dioxide 26
BUN 21 H
Creatinine 1.2
Glucose 170 H
Calcium 9.3
Vital Signs:
Vital Signs
Temp Pulse Resp BP Pulse Ox
98.3 F 52 16 136/78 93
06/26/24 02:45 06/26/24 07:51 06/26/24 02:45 06/26/24 07:51 06/26/24 02:45
I&O
06/25/24 06/26/24 06/27/24
06:59 06:59 06:59
Intake Total 310 / 310 1690 / 1690
Output Total 1290 / 1290
Balance 310 / 310 400 / 400
[2024-06-26] MEDS: ORETIC 12.5 MG PO (08:15)
--- NOTE | 2024-06-26 09:07 | CM ---
Reviewed chart. Met with Mr. Reinoso to review discharge plans. He states he is feeling well and maybe able to go home soon. We reviewed the co-pay for Brilinta 90 mg po bid. He is agreeable to paying the $47.00 monthly. Telephone call to [facility] to confirm they have Brilinta 90 mg po in stock. [facility] has Brilinta 90 mg in stock. Prior to admission he resides with his spouse in a two story home with two steps to enter. He has a full flight of steps to get to bedroom/full
bathroom. He has a powder room on the first floor. He states prior to admission he was independent with ambulation and adls. He has a walker at home and no other DME. He states he has a prescription plan with [facility] and uses [facility].
Medical work-up in progress. The discharge plan is to return home with his spouse when medically stable.
--- NOTE | 2024-06-26 10:08 | PTCARENOTE ---
received patient this am,monitor shows NSR with a first degree, VSS. HR still remains in the 50's. left groin dsg. D/I, tender to touch, distal pulse palpable. able to ambulate without difficulties.
[2024-06-26 11:23] VITALS: BP 114/96
--- NOTE | 2024-06-26 12:55 | W.DCSUMMARY ---
Discharge Summary
Discharge Data
Date of Admission: 06/25/24
Date of Discharge: 06/26/24
Total time spent discharging patient (in min): 38
-
Pending Results: No
Hospital Course
78 y/o male with past medical history significant for coronary artery disease with prior stenting, CABG, hypertension and ulcerative colitis presented with chest pain. Given patient's symptoms worsened compared to Summer 2023, patient was started on
Heparin Drip given concern for unstable angina. Patient was also given a loading dose of Aspirin. Patient had a cardiac cath on June 25, 2024, and it showed, per analytical engineer's report, '1. Right dominant circulation with chronic total occlusion of
the ostial left main coronary artery, a chronic total occlusion of the distal mid LAD status post prior bypass (patent LATHAM to LAD, patent LRA to OM 3) with subsequent retrograde PCI of the left circumflex through the bypass graft which now supplies
the entire circumflex territory and the proximal LAD to the level of the mid LAD FLIGHT TEACHER and a 95% distal RCA lesion with STARR I flow, status post successful PCI ([employer] [place] 2.5 x 18 INDIGO, postdilated with a 2.5 NC balloon throughout and a
3.0 x 8 NC balloon in the proximal margin) with reduction in stenosis to 0%, restoring STARR-3 flow. 2. Mild to moderately elevated filling pressures (LVEDP = 18 mmHg at 97.1 kg). 3. Probably moderate aortic valve stenosis (mean AV gradient 19
mmHg).'
Patient was recommended to continue on high-intensity statin, and dual antiplatelet therapy with Aspirin and Ticagrelor for at least 12 months, followed by Aspirin indefinitely. Patient would also need cardiac rehab. Patient was feeling better,
chest pain improved, and he was stable for discharge.
Discharge Plan
-
Patient Disposition: Home (Routine Discharge)
Discharge Diagnosis/Procedures: Angioplasty and stent to Right Coronary artery
Chest Pain status post PCI to 95% dRCA lesion with STARR I flow ([employer] [place] 2.5 x 18 INDIGO, post dilated with a 2.5 NCB throughout, 3.0 x 8 NCB in the proximal margin) with reduction in stenosis to 0%, restoring STARR III flow
History of Coronary Artery Disease, prior CABG and stenting
Sinus Rhythm with PACs
Aortic Stenosis
Benign Hypertension
Hyperlipidemia
Ulcerative Colitis
Condition: Good
Diet: Low Fat, Low Cholesterol, Low Sodium and Diabetic, Carb Controlled
Activity: Other activity
Additional Activity: Limited weight bearing for one week
Driving Restrictions: No driving for 24 hours
Other Services: Cardiac Rehab
Activity Restrictions/Additional Instructions:
YOU NEED TO TAKE BOTH ASPIRIN AND TICAGRELOR EVERYDAY for 12 MONTHS, followed by Aspirin indefinitely -- discuss this with your analytical engineer soon.
Stand Alone Forms: DC Instructions- Cath/EP Lab
Referrals:
Jessica Solis CRNP [Specified Professional Personl] - 07/13/24 7:40 am (Cardiology followup appointment)
Lesa Schmidt MD [Family Provider] - in less than 1 week
Additional Discharge Medication Instructions: Atenolol has been increased to twice per day (every 12 hours)
Atorvastatin has been increased to 40 mg daily
Brilinta is a new medication
YOU NEED TO TAKE BOTH ASPIRIN AND TICAGRELOR EVERYDAY for 12 MONTHS, followed by Aspirin indefinitely
Prescriptions:
New
atenolol 25 mg Tablet
25 mg PO Q12 Qty: 60 2RF
atorvastatin 40 mg Tablet
40 mg PO DAILY Qty: 30 11RF
Brilinta 90 mg Tablet
90 mg PO BID Qty: 60 11RF
Continued
allopurinol 100 MG tablet
200 mg PO HS
nitroglycerin 0.4 MG tablet, sublingual
0.4 mg sublingual [id number] PRN (Reason: Chest pain)
mesalamine [Lialda] 1.2 GM tablet,delayed release (DR/EC)
1.2 g PO Q48H
amlodipine 5 MG tablet
5 mg PO DAILY
therapeutic multivitamin Tablet
1 tab PO WEEKLY
valsartan-hydrochlorothiazide 320-12.5 mg Tablet
1 tab PO DAILY
isosorbide mononitrate 60 mg Tablet Extended Release 24 Hr
60 mg PO DAILY
omeprazole 20 MG capsule,delayed release(DR/EC)
20 mg PO DAILY
levothyroxine
50 mcg PO DAILY
aspirin 81 MG tablet,chewable
81 mg PO DAILY Qty: 30 11RF
Discontinued
atenolol 25 MG tablet
25 mg PO HS
atorvastatin 20 mg Tablet
20 mg PO DAILY
Discharge Orders:
Discharge Patient (As Directed); Ordered 06/26/24
Ordered By: Donovan Benavides
Care Plan Goals
Care Plan Goals:
Problem: Readiness for enhanced knowledge related to diagnosis and treatment plan
Goal: Understand your diagnosis and treatment plan needs, including medications if applicable.
Instructions: Know your diagnosis, underlying causes and treatment plan options, including medications if applicable. Consult with your health care team to learn about your diagnosis and treatment plan, including medications if applicable.
Discharge Date and Time
Discharge Date/Time: 06/26/24 13:43
Print Language: GEORGIAN
[2024-06-26 13:38] VITALS: BP 136/78
--- NOTE | 2024-06-26 13:41 | PTCARENOTE ---
D/C instructions given to patient and , both verbalizes understanding. INT D/C'd, telemetry D/C'd, personal belongings packed and sent home with patient. D/C to home via wc accompanied by staff.
== END 2024-06-26 13:43 | disposition home or self-care (01) | DRG 322 ==
LOC: IVU 09:03
PROVIDERS: Internal Medicine Cardiovascular Disease; ADMITTING PHYSICIAN Hospitalist; ATTENDING PHYSICIAN Hospitalist; CONSULT PHYSICIAN Internal Medicine; EMERGENCY PHYSICIAN Emergency Medicine; FAMILY PHYSICIAN Internal Medicine
PROC: B2111ZZ Fluoroscopy of Multiple Coronary Arteries using Low Osmolar Contrast (ICD-10-PCS; 2024-06-25)
PROC: 027034Z Dilation of Coronary Artery, One Artery with Drug-eluting Intraluminal Device, Percutaneous Approach (ICD-10-PCS; 2024-06-25)
PROC: B2131ZZ Fluoroscopy of Multiple Coronary Artery Bypass Grafts using Low Osmolar Contrast (ICD-10-PCS; 2024-06-25)
PROC: 4A023N7 Measurement of Cardiac Sampling and Pressure, Left Heart, Percutaneous Approach (ICD-10-PCS; 2024-06-25)
DX: I25.110 Atherosclerotic heart disease of native coronary artery with unstable angina pectoris (principal); K51.90 Ulcerative colitis, unspecified, without complications; I25.82 Chronic total occlusion of coronary artery; I35.0 Nonrheumatic aortic (valve) stenosis; I10 Essential (primary) hypertension; J45.909 Unspecified asthma, uncomplicated; M10.9 Gout, unspecified; E66.9 Obesity, unspecified; Z68.30 Body mass index [BMI] 30.0-30.9, adult; Z95.1 Presence of aortocoronary bypass graft; Z82.49 Family history of ischemic heart disease and other diseases of the circulatory system; Z79.82 Long term (current) use of aspirin; E78.00 Pure hypercholesterolemia, unspecified; I48.91 Unspecified atrial fibrillation; K21.9 Gastro-esophageal reflux disease without esophagitis; Z79.01 Long term (current) use of anticoagulants
CPT/HCPCS: 71046; 80048; 80053; 80061; 83735; 83880; 84484; 85025; 85027; 85347; 85730; 93005; 93459; 99152; 99153; 99285; C1725; C1769; C1874; C1887; C1894; C9600; Q9967

== ENCOUNTER 2024-06-28 18:33 | Emergency (ER) | payer MEDICARE, OTHER, SELFPAY ==
[2024-06-28 18:37] VITALS: BP 159/66
[2024-06-28 20:03] VITALS: BP 138/71
[2024-06-28 20:07] VITALS: BMI 31.0
--- NOTE | 2024-06-28 21:25 | VASLABRESULT ---
Preliminary VascularLab Result
- -
I gave a preliminary report for Mr Elias ultrasound left groin to Dr Angulo. It was negative for pseudo, AVF, and hematoma. Dr Garcia was also notified and he will read the report tomorrow.
[2024-06-28 21:49] VITALS: BP 121/70
--- NOTE | 2024-06-28 21:49 | ED.GENMED ---
History of Present Illness
General
Chief Complaint: Post Operative Problem(s)
Source: patient and spouse
Exam Limitations: none
Time Seen by Provider: 06/28/24 20:02
Nursing documentation reviewed up to this point in time: agreed with
History of Present Illness
History of Present Illness:
78-year-old male presents emergency department due to a red streak in his groin that is starting to split. He had cardiac stent placed 06/25/2024. He states the swelling has not improved.
Past History
Past History
ED Past Medical History: CAD, GERD, HTN, Hypercholesterolemia and Valvular disease
ED Past Surgical History: Cardiac (CABG 1999, cath w/ stents)
Social History
Tobacco: Non-smoker
Alcohol: None
Drug: None
Personal:
Living: with family
Employment: Retired
Family History
Family History: Other (Noncontributory)
Review of Systems
Review of Systems
Allergies reviewed?: Yes
All Other Systems: Not applicable
Constitutional: Reports no symptoms
EENT: Reports no symptoms
Respiratory: Reports no symptoms
Cardiac: Reports no symptoms
ABD/GI: Reports no symptoms
: Reports no symptoms
Musculoskeletal: Reports no symptoms
Skin: Reports no symptoms
Neurological: Reports no symptoms
Endocrine: Reports no symptoms
Hematologic/Lymphatic: Reports no symptoms
Psychiatric: Reports no symptoms
Phy Exam
Physical Exam
Physical Exam:
Physical Exam
General: no apparent distress, not acutely ill
Neck: supple. no meningeal signs. normal posterior pharynx
Heart: s1/s2 regular rate and rhythm, no murmur. equal radial
pulses.
HEENT: Pupils equal round reactive to light, EOMI
Lungs: no acute respiratory distress. clear bilaterally
Abdomen: normal bowel sounds. not tender. no CVAT
Neuro: alert and oriented. no focal neurological deficits cranial nerves II through XII intact
Skin: no rash, ecchymosis groin, moist, cracking in left lower pannus
Psychiatric: well kept. interactive and cooperative
Extremities: no edema. no calf tenderness. negative homans. good distal pulses
Course
Orders/Labs/Results
Orders:
Orders
06/28/24 21:05
US Groin (vascular exam) LT Urgent
Comment:
Reason For Exam: swelling, post cath
Vital Signs
Initial and Last Documented VS:
Initial Vital Signs
Temp Pulse Resp BP Pulse Ox
97.7 F 54 18 159/66 95
06/28/24 18:37 06/28/24 18:37 06/28/24 18:37 06/28/24 18:37 06/28/24 18:37
Last Documented Vital Signs
Temp Pulse Resp BP Pulse Ox
97.7 F 57 16 138/71 93
06/28/24 18:37 06/28/24 20:45 06/28/24 20:45 06/28/24 20:03 06/28/24 20:45
MDM/Problems Addressed
Differential Diagnosis Includes:
Pseudo aneurysm, fungal infection
MDM/Problems Addressed:
78-year-old male with left groin dermatitis, possibly fungal. Will place air dressing and apply antifungal. Stable for discharge.
Chronic conditions affecting care: CAD
Acute Exacerbation and/or Progression of Chronic Illness: CAD
*Radiology
Radiology exam reviewed: radiology read reviewed (Left groin ultrasound no pseudoaneurysm)
*Critical Care Note
Total Time (30-74mins, 75-104mins- exclusive of procedures): Not Applicable
Data Reviewed
Review of Other/Old Records Reveals: Operative Reports (Cardiac catheterization 06/25/[address] Omalley)
Source: records
Patient Management
Social determinants of health affecting care: Living situation and Strong social support
Escalation/DeEscalation of care consider admission/obs:
Admit indicated
ED Attending Note
-
Portions of this chart may have been created with voice recognition software.� Occasional wrong word or��sound alike� substitutions may have occurred due to the inherent limitations of voice recognition software.
Discharge Plan
Departure
Patient Disposition: Home (Routine Discharge)
Date of Disposition: 06/28/24
Time of Disposition: 21:55
Patient with high blood pressure during this ER visit?: Yes
Condition: Good
Discharge Problem:
Dermatitis, Encounter for evaluation of wound
Instructions: Wound Care ([place]), [facility]-Wounds, BLOOD PRESSURE
Prescriptions:
New
clotrimazole [Clotrimazole AF] 1 % cream
1 applic topical BID 14 Days Qty: 15 0RF
No Action
allopurinol 100 MG tablet
200 mg PO HS
nitroglycerin 0.4 MG tablet, sublingual
0.4 mg sublingual [id number] PRN (Reason: Chest pain)
mesalamine [Lialda] 1.2 GM tablet,delayed release (DR/EC)
1.2 g PO Q48H
amlodipine 5 MG tablet
5 mg PO DAILY
therapeutic multivitamin Tablet
1 tab PO WEEKLY
valsartan-hydrochlorothiazide 320-12.5 mg Tablet
1 tab PO DAILY
isosorbide mononitrate 60 mg Tablet Extended Release 24 Hr
60 mg PO DAILY
omeprazole 20 MG capsule,delayed release(DR/EC)
20 mg PO DAILY
levothyroxine
50 mcg PO DAILY
atenolol 25 mg Tablet
25 mg PO Q12 Qty: 60 2RF
atorvastatin 40 mg Tablet
40 mg PO DAILY Qty: 30 11RF
Brilinta 90 mg Tablet
90 mg PO BID Qty: 60 11RF
aspirin 81 MG tablet,chewable
81 mg PO DAILY Qty: 30 11RF
Referrals:
Shar Omalley, [Active] - Call in 1-3 days for appt
Lesa Schmidt MD [Family Provider] -
Interventions
Interventions:
*Risk Screen - Suicide Last Done: 06/28/24 18:37
*General Assessment Last Done: 06/28/24 18:37
*Neglect/Abuse Screening Last Done: 06/28/24 18:37
*ED- Fall Risk Assessment Last Done: 06/28/24 20:07
*ED COVID-19 Vaccine History Last Done: 06/28/24 18:37
ED-Skin Assessment Last Done: 06/28/24 20:07
Discharge Date and Time
Print Language: MARTINIQUAIS
[2024-06-28 22:00] VITALS: BP 111/70
[2024-06-28] MEDS: LOTRIMIN 1% CREAM 1 APPLIC TOPICAL (22:34)
== END 2024-06-28 23:11 | disposition home or self-care (01) ==
LOC: EMR 18:33
PROVIDERS: EMERGENCY PHYSICIAN Emergency Medicine; FAMILY PHYSICIAN Internal Medicine
DX: L30.9 Dermatitis, unspecified (principal); Z48.01 Encounter for change or removal of surgical wound dressing; R22.42 Localized swelling, mass and lump, left lower limb; I25.10 Atherosclerotic heart disease of native coronary artery without angina pectoris; I10 Essential (primary) hypertension; E78.00 Pure hypercholesterolemia, unspecified; Z95.5 Presence of coronary angioplasty implant and graft
CPT/HCPCS: 99284; 93926

== ENCOUNTER → 2024-07-03 10:36 | Outpatient (REF) | payer MEDICARE, OTHER, SELFPAY | LOC: RAD 10:36 | PROVIDERS: ATTENDING PHYSICIAN Internal Medicine Cardiovascular Disease; FAMILY PHYSICIAN Internal Medicine | DX: R10.32 Left lower quadrant pain (principal); Z95.5 Presence of coronary angioplasty implant and graft | CPT/HCPCS: 93926 ==

== ENCOUNTER → 2024-07-17 14:41 | Outpatient (REF) | payer MEDICARE, OTHER, SELFPAY | LOC: RCS 14:41 | PROVIDERS: ATTENDING PHYSICIAN Nurse Practitioner; FAMILY PHYSICIAN Internal Medicine | DX: R07.89 Other chest pain (principal) | CPT/HCPCS: 93308; 93321; 93325; Q9950 ==

== ENCOUNTER 2024-07-24 09:07 | Day surgery (SDC) | payer MEDICARE, OTHER, SELFPAY ==
[2024-07-24 09:19] VITALS: BMI 31.3
[2024-07-24 09:20] VITALS: BP 134/70
[2024-07-24 09:45] VITALS: BP 134/70
[2024-07-24] MEDS: NSS 1000 IV (10:02)
[2024-07-24 10:46] VITALS: BP 118/65
[2024-07-24 15:34] VITALS: BP 157/61
[2024-07-24 15:39] VITALS: BP 148/60
[2024-07-24 15:50] VITALS: BP 148/60
--- NOTE | 2024-07-24 18:53 | ITS.CL.PN ---
Photolith Operator - Procedure Note
Procedure
Procedure Note:
CARDIAC CATHETERIZATION REPORT
Date of Procedure: 07/24/2024
Referring: Dr. Lalit Guzman MD, PhD
Indication: Worsening angina
PROCEDURE(S)
1. left heart catheterization
2. coronary angiography
3. bypass graft angiography
ACCESS: 6F right common femoral artery (closure: Angioseal x1)
CATHETERS
1. 6F JR4
2. 6F JL4
3. 6F LARRY
4. 6F multipurpose
5. 6F angled pigtail
MODERATE SEDATION: 45 minutes of moderate sedation was utilized. An independent certified medical assistant was present to assist with and help manage the patient's level of consciousness and physiologic status.
HEMODYNAMIC DATA
LV 159/9 (EDP 23) mmHg
AO 160/15 (mean 95) mmHg
CORONARY ANGIOGRAPHY
Dominance: Right
LM: Totally occluded ostially
LAD: The mid to distal vessel fills via the LATHAM with a Y graft to a diagonal branch. The proximal vessel fills retrograde via the SVG to OM 3.
LCx: Large vessel filled via the patent SVG to OM3.
RCA: Large vessel giving rise to a moderate caliber RPDA and small RPL system. There is a patent recently placed stent in the distal RCA. There is diffuse focally moderate disease in the RPDA. There is focal severe disease in the continuation of the
RPAV leading into several very small RPL branches with STARR-3 flow throughout. Overall unchanged appearance from recent PCI completion angiogram.
BYPASS GRAFT ANGIOGRAPHY:
LATHAM-LAD: the LATHAM is taken as a pedicle and forms an anastomosis with the mid-LAD.
SVG-OM3: patent
SVG-RPDA?: Competitive flow in the RPDA suggests that this vessel is grafted. Inspection of old angiograms suggest that there is a graft to the RPDA that is atretic. Operative report is not available.
RADIATION: dose 660.31 mGy; DAP 64.59 and Gy*cm2; fluoroscopy time 11.8 min
CONCLUSIONS
1. Stable coronary artery disease with no lesion to explain patient's symptoms.
2. Moderately elevated LV filling pressure and no aortic stenosis.
RECOMMENDATIONS
1. Titration of antianginal medications with increase isosorbide to 120 mg daily
2. Aggressive secondary prevention of coronary artery disease
Copy to: Lalit Guzman MD, PhD (blood bank calendar control clerk); Dr. Lesa Schmidt MD (PCP)
Signed: Lalit Guzman MD, PhD
== END 2024-07-24 18:32 | disposition home or self-care (01) ==
LOC: CATH 09:07
PROVIDERS: ATTENDING PHYSICIAN Student in an Organized Health Care Education/Training Program; FAMILY PHYSICIAN Internal Medicine
DX: I25.110 Atherosclerotic heart disease of native coronary artery with unstable angina pectoris (principal); Z79.82 Long term (current) use of aspirin; Z79.899 Other long term (current) drug therapy; Z79.890 Hormone replacement therapy; Z79.02 Long term (current) use of antithrombotics/antiplatelets; Z95.1 Presence of aortocoronary bypass graft; Z95.5 Presence of coronary angioplasty implant and graft
CPT/HCPCS: 99152; 99153; 93459; C1760; C1894; Q9967

== ENCOUNTER → 2025-01-07 08:52 | Outpatient (REF) | payer MEDICARE, OTHER, SELFPAY ==
[2025-01-07 13:13] LABS: Glycohemoglobin (HgbA1c) 6.0 % (4.0-5.6)
[2025-01-07 13:18] LABS: ALT (SGPT) 38 U/L (0-50); AST (SGOT) 31 U/L (17-59); Albumin 4.3 g/dl (3.5-5.0); Alkaline Phosphatase 44 U/L (38-126); Blood Urea Nitrogen 25 mg/dl (9-20); Calcium 9.1 mg/dl (8.4-10.2); Carbon Dioxide 26 mmol/L (22-30); Chloride 107 mmol/L (98-107); Glucose 129 mg/dl (70-99); HDL Cholesterol 51 mg/dl; LDL Cholesterol, Calculated 52 mg/dl; Potassium 4.0 mmol/L (3.5-5.1); Sodium 140 mmol/L (135-145); Total Protein 6.7 g/dl (6.3-8.2); Very Low Density Lipoprotein 13 mg/dl (0-30); eGFR > 60.00
[2025-01-07 16:26] LABS: Uric Acid 6.3 mg/dl (3.5-8.5)
== END ==
LOC: HWLAB 08:52
PROVIDERS: ATTENDING PHYSICIAN Internal Medicine
DX: E11.9 Type 2 diabetes mellitus without complications (principal); E78.5 Hyperlipidemia, unspecified; M1A.9XX0 Chronic gout, unspecified, without tophus (tophi)
CPT/HCPCS: 36415; 80053; 80061; 83036; 84550